=== PATIENT | male | born 1945 | race African-American/Black ===

== ENCOUNTER 2017-10-16 03:28 | Inpatient (IN) ==
[2017-10-16] MEDS ORDERED: SODIUM CHLORIDE 0.9% 500 ML IV STA (03:44)
[2017-10-16] MEDS ORDERED: ALBUTEROL/IPRATROPIUM 3 ML NEB RESP TX STA (03:44)
[2017-10-16] MEDS ORDERED: methylPREDNISolone SOD SUC 125 MG/2 ML VIAL IV STA (03:44)
[2017-10-16 03:59] LABS: Basophils # 0.1 10*3/uL (0.0-0.2); Basophils % 0.5 % (0.0-0.8); Eosinophils % 0.1 % (0.00-10.9); Hematocrit 43.2 VOL% (42.0-52.0); Hemoglobin 14.3 GM/DL (14.0-18.0); Immature Granulocytes % 1.6 %; Lymphocytes % 7.6 % (21.2-54.2); Mean Corpuscular HGB Conc 33.1 GM/DL (32-36); Mean Corpuscular Hemoglobin 29 PG (27-34); Mean Platelet Volume 9.3 FL (9.6-12.0); Monocytes # 0.6 10*3/uL (0.11-0.8); Monocytes % 4.7 % (1.7-12.7); Neutrophils # 10.7 10*3/uL (1.4-7.4); Neutrophils % 85.5 % (38.7-73.9); Platelet Count 379 T/CUMM (130-400); Red Blood Count 4.91 MC/CUMM (3.8-5.5); Red Cell Distribution Width 13.2 % (9.3-17.3); White Blood Count 12.5 T/CUMM (4-12)
[2017-10-16 04:10] LABS: INR 1.1; PT Patient Result 11.6 SECS
[2017-10-16 04:28] LABS: Bilirubin,Total 0.5 MG/DL (0.2-1.0); Calcium 9.1 MG/DL (8.5-10.1); Osmolality,Calculated 305.3 MOS/KG (273-304); Potassium 3.6 MMOL/L (3.5-5.1); Thyroid Stimulating Hormone 1.72 uIU/ml (0.358-3.74); Total Protein 7.5 G/DL (6.4-8.3); Troponin I Only 0.023 NG/ML (0.00-0.045)
[2017-10-16] MEDS ORDERED: methylPREDNISolone SOD SUC 125 MG/2 ML VIAL ONE (04:29)
[2017-10-16 04:31] LABS: ABG Base Excess 0.2 MMOL/L (-2.5-2.5); ABG HCO3 23.1 MMOL/L (20-26); ABG Oxygen Saturation 82.4 % (95-100); ABG PCO2 32.7 MM HG (35-48); ABG PH 7.466 (7.35-7.45); ABG PO2 50.1 MM HG (80-95); ABG TCO2 24.1 MMOL/L (23-27)
[2017-10-16 04:32] LABS: Lactic Acid 1.2 MMOL/L (0.4-2.0)
[2017-10-16] MEDS ORDERED: metroNIDAZOLE INJ 500 MG in PREMIX 1 EACH IV STA (05:31)
[2017-10-16] MEDS ORDERED: PIPERACILLIN/TAZOBACTAM 3,375 MG in SODIUM CHLORIDE 0.9% 100 ML IV STA (05:31)
[2017-10-16] MEDS ORDERED: ALBUTEROL 2.5 MG/3 ML NEB RESP TX PRN (05:59)
[2017-10-16] MEDS ORDERED: ONDANSETRON 4 MG/2 ML VIAL IV PRN (05:59)
[2017-10-16] MEDS ORDERED: PROMETHAZINE 25 MG/1 ML VIAL IM PRN (05:59)
[2017-10-16] MEDS ORDERED: SODIUM CHLORIDE 0.9% 100 ML IV ONE (06:03)
[2017-10-16] MEDS ORDERED: metroNIDAZOLE 500 MG/100 ML PREMIX IV ONE (06:03)
[2017-10-16] MEDS ORDERED: PIPERACILLIN/TAZOBACTAM 3,375 MG VIAL IV ONE (06:03)
[2017-10-16 06:42] LABS: Apearance,Urine Slightly Hazy (Clear); Bilirubin,Urine Negative (Negative); Blood, Urine Negative (Negative); Glucose,Urine (UA) Negative (Negative); Hyaline Casts,Urine 11 /LPF (0-3); Ketones,Urine Negative (Negative); Mucus,Urine Moderate /LPF (Occasional); Nitrite,Urine Negative (Negative); Protein,Urine 30 MG/DL; Urine Color Yellow (Yellow); Urine Specific Gravity 1.042 (1.001-1.035); Urine Urobilinogen < 2.0 EU/DL (0.2-1.0); WBC,Urine 2 /HPF (0-6)
[2017-10-16 06:48] LABS: RBC,Urine 0 /HPF (0-4)
[2017-10-16] MEDS: ALBUTEROL/IPRATROPIUM 3 ML NEB RESP TX SCH ×3 (07:39→18:57)
[2017-10-16] MEDS ORDERED: fentaNYL 100 MCG/2 ML VIAL ONE (09:32)
[2017-10-16] MEDS ORDERED: MIDAZOLAM 2 MG/2 ML VIAL ONE (09:32)
[2017-10-16] MEDS ORDERED: PHENYLEPHRINE 10 MG/1 ML VIAL IV ONE (09:32)
[2017-10-16] MEDS ORDERED: ETOMIDATE 40 MG/20 ML VIAL IV ONE (09:32)
[2017-10-16] MEDS ORDERED: SEVOFLURANE 1 UNIT/15 MINUTE INH ONE (09:32)
[2017-10-16] MEDS ORDERED: SUCCINYLCHOLINE 200 MG/10 ML VIAL ONE (09:33)
[2017-10-16] MEDS ORDERED: ROCURONIUM 100 MG/10 ML VIAL IV ONE (09:33)
[2017-10-16] MEDS ORDERED: LACTATED RINGERS 1,000 ML IV ONE (09:33)
[2017-10-16] MEDS ORDERED: SODIUM CHLORIDE 0.9% 2,000 ML IV ONE (09:33)
[2017-10-16 09:52] LABS: ABG Base Excess -6.2 MMOL/L (-2.5-2.5); ABG HCO3 19.3 MMOL/L (20-26); ABG Oxygen Saturation 96.8 % (95-100); ABG PCO2 55.5 MM HG (35-48); ABG PH 7.216 (7.35-7.45); ABG TCO2 20.3 MMOL/L (23-27)
[2017-10-16 09:59] LABS: Hematocrit 41.1 VOL% (42.0-52.0)
[2017-10-16 10:21] LABS: ABG Base Excess -5.5 MMOL/L (-2.5-2.5); ABG HCO3 19.9 MMOL/L (20-26); ABG Oxygen Saturation 96.8 % (95-100); ABG PCO2 55.9 MM HG (35-48); ABG PH 7.225 (7.35-7.45); ABG TCO2 20.7 MMOL/L (23-27)
[2017-10-16] MEDS: PROPOFOL 1,000 MG/100 ML BOTTLE IV SCH (10:38)
[2017-10-16] MEDS: SODIUM CHLORIDE 0.9% 1,000 ML IV SCH ×2 (11:20→22:23)
[2017-10-16] MEDS: PHENYLEPHRINE DRIP 40 MG/250 ML PREMIX IV PRN ×3 (11:21→23:19)
[2017-10-16] MEDS: metroNIDAZOLE INJ 500 MG in PREMIX 1 EACH IV SCH ×2 (11:42→18:12)
[2017-10-16] MEDS: methylPREDNISolone SOD SUC 40 MG/1 ML VIAL IV SCH ×2 (11:42→22:18)
[2017-10-16 11:47] LABS: ABG Base Excess -4.6 MMOL/L (-2.5-2.5); ABG HCO3 20.7 MMOL/L (20-26); ABG Oxygen Saturation 99.3 % (95-100); ABG PCO2 44.4 MM HG (35-48); ABG PH 7.301 (7.35-7.45); ABG TCO2 19.4 MMOL/L (23-27)
[2017-10-16] MEDS: PIPERACILLIN/TAZOBACTAM 3,375 MG in SODIUM CHLORIDE 0.9% 100 ML IV SCH ×2 (15:00→22:17)
[2017-10-16 17:14] LABS: Hematocrit 37.8 VOL% (42.0-52.0); Hemoglobin 12.5 GM/DL (14.0-18.0)
[2017-10-17] MEDS: SODIUM CHLORIDE 0.9% 1,000 ML IV SCH ×2 (00:34→10:33)
[2017-10-17] MEDS: metroNIDAZOLE INJ 500 MG in PREMIX 1 EACH IV SCH ×5 (00:36→23:39)
[2017-10-17] MEDS: ALBUTEROL/IPRATROPIUM 3 ML NEB RESP TX SCH ×4 (00:46→18:40)
[2017-10-17 02:07] LABS: Basophils # 0.2 10*3/uL (0.0-0.2); Basophils % 0.8 % (0.0-0.8); Hematocrit 37.6 VOL% (42.0-52.0); Hemoglobin 11.9 GM/DL (14.0-18.0); Immature Granulocytes % 2.7 %; Immature Granulocytes Absolute 0.52 #; Lymphocytes # 0.7 10*3/uL (1.4-4.0); Lymphocytes % 3.9 % (21.2-54.2); Mean Corpuscular HGB Conc 31.6 GM/DL (32-36); Mean Corpuscular Hemoglobin 29 PG (27-34); Mean Corpuscular Volume 90.2 FL (87-102); Mean Platelet Volume 9.4 FL (9.6-12.0); Monocytes # 0.8 10*3/uL (0.11-0.8); Monocytes % 4.2 % (1.7-12.7); Neutrophils # 16.9 10*3/uL (1.4-7.4); Neutrophils % 88.4 % (38.7-73.9); Platelet Count 322 T/CUMM (130-400); Red Blood Count 4.17 MC/CUMM (3.8-5.5); Red Cell Distribution Width 13.8 % (9.3-17.3); White Blood Count 19.2 T/CUMM (4-12)
[2017-10-17 02:33] LABS: Albumin 2.1 G/DL (3.4-5.0); Bilirubin,Total 0.5 MG/DL (0.2-1.0); Calcium 7.3 MG/DL (8.5-10.1); Osmolality,Calculated 316.7 MOS/KG (273-304); Total Protein 5.4 G/DL (6.4-8.3)
[2017-10-17 02:43] LABS: Band Neutrophils 42 % (0-10); Lymphocytes 3 % (20-55); Metamyelocytes 1 %; Segmented Neutrophils 52 % (50-85); Total Cells Counted 100
[2017-10-17] MEDS: PROPOFOL 1,000 MG/100 ML BOTTLE IV SCH ×2 (02:59→15:53)
[2017-10-17] MEDS: PIPERACILLIN/TAZOBACTAM 3,375 MG in SODIUM CHLORIDE 0.9% 100 ML IV SCH ×3 (05:26→21:17)
[2017-10-17 07:28] LABS: ABG Base Excess -4.3 MMOL/L (-2.5-2.5); ABG HCO3 20.9 MMOL/L (20-26); ABG Oxygen Saturation 99.7 % (95-100); ABG PCO2 35.5 MM HG (35-48); ABG PH 7.367 (7.35-7.45); ABG TCO2 18.2 MMOL/L (23-27)
[2017-10-17] MEDS ORDERED: ACETAMINOPHEN 325 MG TABLET PO PRN (08:13)
[2017-10-17] MEDS: PHENYLEPHRINE DRIP 40 MG/250 ML PREMIX IV PRN ×2 (09:15→16:31)
[2017-10-17] MEDS: methylPREDNISolone SOD SUC 40 MG/1 ML VIAL IV SCH ×2 (10:29→21:24)
[2017-10-17] MEDS ORDERED: DEXTROSE 5% 1,000 ML IV SCH (12:30)
[2017-10-17] MEDS: LEVOFLOXACIN INJ 250 MG in PREMIX 1 EACH IV SCH (12:53)
[2017-10-17] MEDS: [UNRECOGNIZED DRUG - OTHER] IV SCH ×3 (12:57→23:13)
[2017-10-17] MEDS: MULTIVITAMIN IV SCH ×3 (12:57→23:13)
[2017-10-17] MEDS: THIAMINE IV SCH ×3 (12:57→23:13)
[2017-10-18] MEDS: ALBUTEROL/IPRATROPIUM 3 ML NEB RESP TX SCH ×4 (01:43→19:22)
[2017-10-18] MEDS: PROPOFOL 1,000 MG/100 ML BOTTLE IV SCH ×3 (04:09→21:54)
[2017-10-18 05:04] LABS: ABG Base Excess -3.2 MMOL/L (-2.5-2.5); ABG HCO3 21.8 MMOL/L (20-26); ABG Oxygen Saturation 99.8 % (95-100); ABG PH 7.406 (7.35-7.45); ABG TCO2 18.7 MMOL/L (23-27)
[2017-10-18] MEDS: PIPERACILLIN/TAZOBACTAM 3,375 MG in SODIUM CHLORIDE 0.9% 100 ML IV SCH ×3 (05:11→21:55)
[2017-10-18] MEDS: metroNIDAZOLE INJ 500 MG in PREMIX 1 EACH IV SCH ×4 (05:11→23:39)
[2017-10-18 05:12] LABS: Basophils # 0.1 10*3/uL (0.0-0.2); Basophils % 0.3 % (0.0-0.8); Hematocrit 32.9 VOL% (42.0-52.0); Hemoglobin 10.5 GM/DL (14.0-18.0); Immature Granulocytes % 1.3 %; Immature Granulocytes Absolute 0.24 #; Lymphocytes # 0.6 10*3/uL (1.4-4.0); Mean Corpuscular HGB Conc 31.9 GM/DL (32-36); Mean Corpuscular Hemoglobin 29 PG (27-34); Mean Corpuscular Volume 91.4 FL (87-102); Mean Platelet Volume 9.8 FL (9.6-12.0); Monocytes # 0.7 10*3/uL (0.11-0.8); Monocytes % 3.5 % (1.7-12.7); Neutrophils # 16.9 10*3/uL (1.4-7.4); Neutrophils % 91.9 % (38.7-73.9); Platelet Count 262 T/CUMM (130-400); Red Cell Distribution Width 13.6 % (9.3-17.3); White Blood Count 18.4 T/CUMM (4-12)
[2017-10-18 05:27] LABS: INR 1.1; Partial Thromboplastin Time 30.6 SECS (0-40)
[2017-10-18 05:51] LABS: Band Neutrophils 2 % (0-10); Lymphocytes 3 % (20-55); Platelet Estimate Adequate; Segmented Neutrophils 91 % (50-85); Total Cells Counted 100
[2017-10-18 05:52] LABS: Giant Platelets Few; Hypochromasia 1+; Ovalocytes Slight
[2017-10-18] MEDS: THIAMINE IV SCH ×2 (09:50→18:25)
[2017-10-18] MEDS: MULTIVITAMIN IV SCH ×2 (09:50→18:25)
[2017-10-18] MEDS: [UNRECOGNIZED DRUG - OTHER] IV SCH ×2 (09:50→18:25)
[2017-10-18] MEDS: methylPREDNISolone SOD SUC 40 MG/1 ML VIAL IV SCH ×2 (10:28→21:55)
[2017-10-18] MEDS: LEVOFLOXACIN INJ 250 MG in PREMIX 1 EACH IV SCH (12:35)
[2017-10-18] MEDS ORDERED: DEXTROSE 50% 25 GM/50 ML VIAL IV PRN (16:00)
[2017-10-18] MEDS ORDERED: GLUCAGON 1 MG VIAL IM PRN (16:00)
[2017-10-18] MEDS ORDERED: DEXT IV SCH ×2 (17:00)
[2017-10-18] MEDS ORDERED: AMINO ACIDS IV SCH ×2 (17:00)
[2017-10-18] MEDS ORDERED: LYTE IV SCH ×2 (17:00)
[2017-10-18] MEDS ORDERED: TRACE ELEMENTS IV SCH ×2 (17:00)
[2017-10-18] MEDS: INSULIN REGULAR 100 UNIT/ML SUBCUT SCH ×2 (18:37→23:39)
[2017-10-18] MEDS: MORPHINE 4 MG/1 ML VIAL IV PRN (20:22)
[2017-10-19] MEDS: ALBUTEROL/IPRATROPIUM 3 ML NEB RESP TX SCH ×4 (01:35→19:33)
[2017-10-19] MEDS: MORPHINE 4 MG/1 ML VIAL IV PRN ×3 (01:54→23:59)
[2017-10-19 03:47] LABS: ABG Base Excess -2.7 MMOL/L (-2.5-2.5); ABG HCO3 22.1 MMOL/L (20-26); ABG Oxygen Saturation 99.7 % (95-100); ABG PCO2 44.1 MM HG (35-48); ABG PH 7.329 (7.35-7.45); ABG TCO2 21.3 MMOL/L (23-27)
[2017-10-19 03:53] LABS: Basophils % 0.2 % (0.0-0.8); Hematocrit 31.8 VOL% (42.0-52.0); Immature Granulocytes Absolute 0.18 #; Lymphocytes # 0.5 10*3/uL (1.4-4.0); Lymphocytes % 2.4 % (21.2-54.2); Mean Corpuscular HGB Conc 31.4 GM/DL (32-36); Mean Corpuscular Hemoglobin 29 PG (27-34); Mean Corpuscular Volume 91.9 FL (87-102); Mean Platelet Volume 9.9 FL (9.6-12.0); Monocytes # 0.5 10*3/uL (0.11-0.8); Monocytes % 2.7 % (1.7-12.7); NRBC # 0.02 10*3/uL; Neutrophils # 17.6 10*3/uL (1.4-7.4); Neutrophils % 93.7 % (38.7-73.9); Platelet Count 241 T/CUMM (130-400); Red Blood Count 3.46 MC/CUMM (3.8-5.5); Red Cell Distribution Width 13.6 % (9.3-17.3); White Blood Count 18.8 T/CUMM (4-12)
[2017-10-19 04:05] LABS: Calcium 7.3 MG/DL (8.5-10.1); Osmolality,Calculated 310.3 MOS/KG (273-304); Potassium 4.1 MMOL/L (3.5-5.1)
[2017-10-19 04:22] LABS: Band Neutrophils 1 % (0-10); Lymphocytes 3 % (20-55); Segmented Neutrophils 94 % (50-85); Total Cells Counted 100
[2017-10-19 04:24] LABS: Giant Platelets Few; Hypochromasia Slight; Ovalocytes 1+; Platelet Estimate Normal
[2017-10-19 04:25] LABS: Burr Cells Few
[2017-10-19 04:29] LABS: Prealbumin 8.9 MG/DL (20-40)
[2017-10-19] MEDS: INSULIN REGULAR 100 UNIT/ML SUBCUT SCH ×3 (05:20→18:00)
[2017-10-19] MEDS: PIPERACILLIN/TAZOBACTAM 3,375 MG in SODIUM CHLORIDE 0.9% 100 ML IV SCH ×3 (05:21→21:06)
[2017-10-19] MEDS: metroNIDAZOLE INJ 500 MG in PREMIX 1 EACH IV SCH ×4 (05:21→23:59)
[2017-10-19] MEDS: PROPOFOL 1,000 MG/100 ML BOTTLE IV SCH ×2 (05:22→15:16)
[2017-10-19] MEDS: methylPREDNISolone SOD SUC 40 MG/1 ML VIAL IV SCH ×2 (09:56→21:06)
[2017-10-19] MEDS ORDERED: DEXTROSE IV SCH (10:00)
[2017-10-19] MEDS ORDERED: MULTIVITAMIN IV SCH (10:00)
[2017-10-19] MEDS ORDERED: THIAMINE IV SCH (10:00)
[2017-10-19] MEDS: LEVOFLOXACIN INJ 250 MG in PREMIX 1 EACH IV SCH (12:21)
[2017-10-19] MEDS: LABETALOL 20 MG/4 ML SYRINGE IV PRN (13:52)
[2017-10-19] MEDS: TRACE ELEMENTS (5) 1 ML, MULTIVITAMIN INJ 10 ML, INSULIN REGULAR 30 UNIT in AMINO ACIDS... IV SCH (15:18)
[2017-10-20] MEDS: INSULIN REGULAR 100 UNIT/ML SUBCUT SCH ×5 (00:53→23:26)
[2017-10-20] MEDS: ALBUTEROL/IPRATROPIUM 3 ML NEB RESP TX SCH ×4 (00:55→19:25)
[2017-10-20] MEDS: PROPOFOL 1,000 MG/100 ML BOTTLE IV SCH ×4 (01:07→19:50)
[2017-10-20 02:08] LABS: ABG Base Excess 0.9 MMOL/L (-2.5-2.5); ABG HCO3 25.2 MMOL/L (20-26); ABG Oxygen Saturation 99.2 % (95-100); ABG PCO2 42.8 MM HG (35-48); ABG PH 7.392 (7.35-7.45); ABG TCO2 23.6 MMOL/L (23-27)
[2017-10-20 02:16] LABS: Basophils # 0.1 10*3/uL (0.0-0.2); Basophils % 0.3 % (0.0-0.8); Hematocrit 30.8 VOL% (42.0-52.0); Hemoglobin 10.1 GM/DL (14.0-18.0); Immature Granulocytes % 0.9 %; Immature Granulocytes Absolute 0.16 #; Lymphocytes # 0.4 10*3/uL (1.4-4.0); Lymphocytes % 2.3 % (21.2-54.2); Mean Corpuscular HGB Conc 32.8 GM/DL (32-36); Mean Corpuscular Hemoglobin 29 PG (27-34); Mean Corpuscular Volume 88.8 FL (87-102); Mean Platelet Volume 10.4 FL (9.6-12.0); Monocytes # 0.6 10*3/uL (0.11-0.8); Monocytes % 3.4 % (1.7-12.7); Neutrophils # 16.1 10*3/uL (1.4-7.4); Neutrophils % 93.1 % (38.7-73.9); Platelet Count 256 T/CUMM (130-400); Red Blood Count 3.47 MC/CUMM (3.8-5.5); Red Cell Distribution Width 13.4 % (9.3-17.3); White Blood Count 17.3 T/CUMM (4-12)
[2017-10-20 02:30] LABS: Calcium 7.7 MG/DL (8.5-10.1); Osmolality,Calculated 309.3 MOS/KG (273-304); Potassium 4.4 MMOL/L (3.5-5.1)
[2017-10-20 02:34] LABS: INR 1.1; PT Patient Result 11.3 SECS; Partial Thromboplastin Time 26.6 SECS (0-40)
[2017-10-20 03:03] LABS: Band Neutrophils 2 % (0-10); Lymphocytes 3 % (20-55); Platelet Estimate Normal; Segmented Neutrophils 95 % (50-85); Total Cells Counted 100
[2017-10-20] MEDS: PIPERACILLIN/TAZOBACTAM 3,375 MG in SODIUM CHLORIDE 0.9% 100 ML IV SCH ×3 (05:27→23:06)
[2017-10-20] MEDS: metroNIDAZOLE INJ 500 MG in PREMIX 1 EACH IV SCH ×4 (05:27→23:26)
[2017-10-20] MEDS: methylPREDNISolone SOD SUC 40 MG/1 ML VIAL IV SCH ×2 (10:24→23:06)
[2017-10-20] MEDS: LEVOFLOXACIN INJ 250 MG in PREMIX 1 EACH IV SCH (12:34)
[2017-10-20] MEDS: MORPHINE 4 MG/1 ML VIAL IV PRN ×2 (13:10→20:43)
[2017-10-20] MEDS ORDERED: TRACE ELEMENTS (5) 1 ML, MULTIVITAMIN INJ 10 ML, INSULIN REGULAR 60 UNIT in AMINO ACIDS... IV SCH (14:30)
[2017-10-20] MEDS: TRACE ELEMENTS (5) 1 ML, MULTIVITAMIN INJ 10 ML, INSULIN REGULAR 60 UNIT in AMINO ACIDS... IV SCH (15:30)
[2017-10-20] MEDS: TRACE ELEMENTS (5) 1 ML, MULTIVITAMIN INJ 10 ML, INSULIN REGULAR 30 UNIT in AMINO ACIDS... IV SCH (16:18)
[2017-10-20] MEDS ORDERED: DEXTROSE 10% 1,000 ML IV PRN (17:00)
[2017-10-20] MEDS: LABETALOL 20 MG/4 ML SYRINGE IV PRN (20:15)
[2017-10-21] MEDS: ALBUTEROL/IPRATROPIUM 3 ML NEB RESP TX SCH ×4 (01:14→19:32)
[2017-10-21] MEDS: PROPOFOL 1,000 MG/100 ML BOTTLE IV SCH ×4 (01:50→20:30)
[2017-10-21 04:37] LABS: ABG Base Excess 3.6 MMOL/L (-2.5-2.5); ABG HCO3 27.7 MMOL/L (20-26); ABG Oxygen Saturation 99.3 % (95-100); ABG PCO2 40.5 MM HG (35-48); ABG PH 7.447 (7.35-7.45); ABG TCO2 24.7 MMOL/L (23-27)
[2017-10-21] MEDS: PIPERACILLIN/TAZOBACTAM 3,375 MG in SODIUM CHLORIDE 0.9% 100 ML IV SCH ×3 (05:21→21:07)
[2017-10-21] MEDS: INSULIN REGULAR 100 UNIT/ML SUBCUT SCH ×3 (05:22→18:08)
[2017-10-21] MEDS: metroNIDAZOLE INJ 500 MG in PREMIX 1 EACH IV SCH ×3 (05:22→17:49)
[2017-10-21 05:35] LABS: Calcium 8.1 MG/DL (8.5-10.1); Osmolality,Calculated 300.6 MOS/KG (273-304); Potassium 4.4 MMOL/L (3.5-5.1)
[2017-10-21] MEDS ORDERED: HEPARIN/NACL 0.9% 2 UNITS/ML 500 ML IV ONE (08:49)
[2017-10-21] MEDS: HEPARIN/NACL 0.9% 2 UNITS/ML 500 ML IV SCH (09:05)
[2017-10-21] MEDS: methylPREDNISolone SOD SUC 40 MG/1 ML VIAL IV SCH ×2 (10:18→21:08)
[2017-10-21] MEDS: LEVOFLOXACIN INJ 250 MG in PREMIX 1 EACH IV SCH (12:04)
[2017-10-21] MEDS: TRACE ELEMENTS (5) 1 ML, MULTIVITAMIN INJ 10 ML, INSULIN REGULAR 60 UNIT in AMINO ACIDS... IV SCH (15:00)
[2017-10-21] MEDS: MORPHINE 4 MG/1 ML VIAL IV PRN (20:10)
[2017-10-22] MEDS: metroNIDAZOLE INJ 500 MG in PREMIX 1 EACH IV SCH ×5 (01:20→23:35)
[2017-10-22] MEDS: INSULIN REGULAR 100 UNIT/ML SUBCUT SCH ×5 (01:20→23:36)
[2017-10-22] MEDS: ALBUTEROL/IPRATROPIUM 3 ML NEB RESP TX SCH ×4 (01:26→19:24)
[2017-10-22] MEDS: MORPHINE 4 MG/1 ML VIAL IV PRN (02:39)
[2017-10-22 04:28] LABS: ABG Base Excess 2.6 MMOL/L (-2.5-2.5); ABG HCO3 26.7 MMOL/L (20-26); ABG Oxygen Saturation 99.3 % (95-100); ABG PCO2 39.6 MM HG (35-48); ABG PH 7.439 (7.35-7.45)
[2017-10-22 05:03] LABS: Calcium 7.5 MG/DL (8.5-10.1); Osmolality,Calculated 300.8 MOS/KG (273-304); Potassium 4.8 MMOL/L (3.5-5.1)
[2017-10-22] MEDS: PIPERACILLIN/TAZOBACTAM 3,375 MG in SODIUM CHLORIDE 0.9% 100 ML IV SCH ×3 (05:49→21:32)
[2017-10-22] MEDS ORDERED: cefTRIAXone 1,000 MG VIAL IM SCH (08:00)
[2017-10-22] MEDS ORDERED: cefTRIAXone 1,000 MG VIAL IV SCH (09:02)
[2017-10-22] MEDS: HEPARIN/NACL 0.9% 2 UNITS/ML 500 ML IV SCH (09:06)
[2017-10-22] MEDS: cefTRIAXone 1,000 MG in SYRINGE 1 EACH IV SCH (09:10)
[2017-10-22] MEDS: methylPREDNISolone SOD SUC 40 MG/1 ML VIAL IV SCH ×2 (09:39→21:33)
[2017-10-22] MEDS: LEVOFLOXACIN INJ 250 MG in PREMIX 1 EACH IV SCH (11:43)
[2017-10-22] MEDS: PROPOFOL 1,000 MG/100 ML BOTTLE IV SCH (14:36)
[2017-10-23] MEDS: ALBUTEROL/IPRATROPIUM 3 ML NEB RESP TX SCH ×4 (01:47→19:16)
[2017-10-23] MEDS: PROPOFOL 1,000 MG/100 ML BOTTLE IV SCH ×3 (04:30→20:28)
[2017-10-23 05:11] LABS: ABG Base Excess 2.4 MMOL/L (-2.5-2.5); ABG HCO3 26.6 MMOL/L (20-26); ABG Oxygen Saturation 99.2 % (95-100); ABG PH 7.434 (7.35-7.45); ABG TCO2 23.6 MMOL/L (23-27)
[2017-10-23] MEDS: PIPERACILLIN/TAZOBACTAM 3,375 MG in SODIUM CHLORIDE 0.9% 100 ML IV SCH ×3 (05:24→22:22)
[2017-10-23] MEDS: INSULIN REGULAR 100 UNIT/ML SUBCUT SCH ×4 (05:25→23:24)
[2017-10-23] MEDS: metroNIDAZOLE INJ 500 MG in PREMIX 1 EACH IV SCH ×4 (05:25→23:23)
[2017-10-23 05:43] LABS: Calcium 8.2 MG/DL (8.5-10.1); Potassium 4.8 MMOL/L (3.5-5.1)
[2017-10-23 05:47] LABS: Prealbumin 24.5 MG/DL (20-40)
[2017-10-23 07:33] LABS: Basophils # 0.1 10*3/uL (0.0-0.2); Basophils % 0.5 % (0.0-0.8); Eosinophils % 0.1 % (0.00-10.9); Hemoglobin 11.4 GM/DL (14.0-18.0); Immature Granulocytes % 5.5 %; Lymphocytes # 1.2 10*3/uL (1.4-4.0); Lymphocytes % 9.3 % (21.2-54.2); Mean Corpuscular HGB Conc 33.5 GM/DL (32-36); Mean Corpuscular Hemoglobin 29 PG (27-34); Mean Corpuscular Volume 86.7 FL (87-102); Mean Platelet Volume 10.1 FL (9.6-12.0); Monocytes # 1.2 10*3/uL (0.11-0.8); Neutrophils # 9.6 10*3/uL (1.4-7.4); Neutrophils % 75.6 % (38.7-73.9); Platelet Count 331 T/CUMM (130-400); Red Blood Count 3.92 MC/CUMM (3.8-5.5); Red Cell Distribution Width 13.2 % (9.3-17.3); White Blood Count 12.7 T/CUMM (4-12)
[2017-10-23 07:37] LABS: INR 1.2; PT Patient Result 12.4 SECS; Partial Thromboplastin Time 24.4 SECS (0-40)
[2017-10-23 08:23] LABS: Hypochromasia 1+
[2017-10-23] MEDS: HEPARIN/NACL 0.9% 2 UNITS/ML 500 ML IV SCH (08:49)
[2017-10-23] MEDS: cefTRIAXone 1,000 MG in SYRINGE 1 EACH IV SCH (09:21)
[2017-10-23] MEDS: methylPREDNISolone SOD SUC 40 MG/1 ML VIAL IV SCH ×2 (09:24→22:23)
[2017-10-23] MEDS: LEVOFLOXACIN INJ 250 MG in PREMIX 1 EACH IV SCH (12:31)
[2017-10-23] MEDS: MORPHINE 4 MG/1 ML VIAL IV PRN (21:00)
[2017-10-24] MEDS: ALBUTEROL/IPRATROPIUM 3 ML NEB RESP TX SCH ×4 (00:11→19:11)
[2017-10-24 04:19] LABS: ABG Base Excess 3.7 MMOL/L (-2.5-2.5); ABG HCO3 27.7 MMOL/L (20-26); ABG Oxygen Saturation 98.9 % (95-100); ABG PCO2 36.1 MM HG (35-48); ABG PH 7.482 (7.35-7.45); ABG TCO2 23.6 MMOL/L (23-27)
[2017-10-24 04:24] LABS: Basophils # 0.1 10*3/uL (0.0-0.2); Basophils % 0.7 % (0.0-0.8); Eosinophils % 0.1 % (0.00-10.9); Hematocrit 38.1 VOL% (42.0-52.0); Hemoglobin 12.4 GM/DL (14.0-18.0); Immature Granulocytes % 3.7 %; Immature Granulocytes Absolute 0.57 #; Lymphocytes # 0.7 10*3/uL (1.4-4.0); Lymphocytes % 4.6 % (21.2-54.2); Mean Corpuscular HGB Conc 32.5 GM/DL (32-36); Mean Corpuscular Hemoglobin 29 PG (27-34); Mean Corpuscular Volume 88.6 FL (87-102); Mean Platelet Volume 9.8 FL (9.6-12.0); Monocytes # 1.1 10*3/uL (0.11-0.8); Monocytes % 6.9 % (1.7-12.7); Neutrophils # 12.8 10*3/uL (1.4-7.4); Platelet Count 362 T/CUMM (130-400); Red Cell Distribution Width 13.2 % (9.3-17.3); White Blood Count 15.3 T/CUMM (4-12)
[2017-10-24 04:44] LABS: Calcium 8.3 MG/DL (8.5-10.1); Osmolality,Calculated 296.3 MOS/KG (273-304); Potassium 4.5 MMOL/L (3.5-5.1)
[2017-10-24 04:47] LABS: Band Neutrophils 2 % (0-10); Giant Platelets Few; Hypochromasia 1+; Lymphocytes 3 % (20-55); Platelet Estimate Adequate; Segmented Neutrophils 89 % (50-85); Total Cells Counted 100
[2017-10-24] MEDS: metroNIDAZOLE INJ 500 MG in PREMIX 1 EACH IV SCH ×4 (06:06→23:45)
[2017-10-24] MEDS: PIPERACILLIN/TAZOBACTAM 3,375 MG in SODIUM CHLORIDE 0.9% 100 ML IV SCH ×3 (06:06→21:42)
[2017-10-24] MEDS: INSULIN REGULAR 100 UNIT/ML SUBCUT SCH ×4 (06:07→23:45)
[2017-10-24] MEDS: methylPREDNISolone SOD SUC 40 MG/1 ML VIAL IV SCH ×2 (09:33→21:42)
[2017-10-24] MEDS: cefTRIAXone 1,000 MG in SYRINGE 1 EACH IV SCH (09:40)
[2017-10-24] MEDS: HEPARIN/NACL 0.9% 2 UNITS/ML 500 ML IV SCH (10:42)
[2017-10-24] MEDS: PROPOFOL 1,000 MG/100 ML BOTTLE IV SCH ×2 (10:42→18:14)
[2017-10-24] MEDS: LEVOFLOXACIN INJ 250 MG in PREMIX 1 EACH IV SCH (12:55)
[2017-10-24] MEDS: FAT EMULSION 20% 250 ML IV SCH (14:55)
[2017-10-24] MEDS ORDERED: TRACE ELEMENTS (5) 1 ML, MULTIVITAMIN INJ 10 ML in AMINO ACIDS/DEXT/LYTE 4.25-15% 2,000 ML IV SCH (17:00)
[2017-10-25] MEDS: ALBUTEROL/IPRATROPIUM 3 ML NEB RESP TX SCH ×4 (01:52→19:41)
[2017-10-25 05:02] LABS: ABG Base Excess 4.2 MMOL/L (-2.5-2.5); ABG HCO3 28.2 MMOL/L (20-26); ABG Oxygen Saturation 99.2 % (95-100); ABG PCO2 40.3 MM HG (35-48); ABG PH 7.456 (7.35-7.45); ABG TCO2 25.3 MMOL/L (23-27)
[2017-10-25] MEDS: metroNIDAZOLE INJ 500 MG in PREMIX 1 EACH IV SCH ×3 (06:17→17:38)
[2017-10-25] MEDS: PIPERACILLIN/TAZOBACTAM 3,375 MG in SODIUM CHLORIDE 0.9% 100 ML IV SCH ×3 (06:18→21:35)
[2017-10-25] MEDS: INSULIN REGULAR 100 UNIT/ML SUBCUT SCH ×3 (06:18→18:33)
[2017-10-25] MEDS: HEPARIN/NACL 0.9% 2 UNITS/ML 500 ML IV SCH (08:11)
[2017-10-25] MEDS: cefTRIAXone 1,000 MG in SYRINGE 1 EACH IV SCH (09:12)
[2017-10-25] MEDS: methylPREDNISolone SOD SUC 40 MG/1 ML VIAL IV SCH ×2 (09:12→21:33)
[2017-10-25] MEDS: LEVOFLOXACIN INJ 250 MG in PREMIX 1 EACH IV SCH (11:58)
[2017-10-25] MEDS: FAT EMULSION 20% 250 ML IV SCH (14:47)
[2017-10-25] MEDS: TRACE ELEMENTS (5) 1 ML, MULTIVITAMIN INJ 10 ML in AMINO ACIDS/DEXT/LYTE 4.25-15% 2,000 ML IV SCH (17:38)
[2017-10-25] MEDS: PROPOFOL 1,000 MG/100 ML BOTTLE IV SCH (19:48)
[2017-10-26] MEDS: ALBUTEROL/IPRATROPIUM 3 ML NEB RESP TX SCH ×4 (00:52→19:27)
[2017-10-26] MEDS: metroNIDAZOLE INJ 500 MG in PREMIX 1 EACH IV SCH ×4 (01:02→17:44)
[2017-10-26] MEDS: INSULIN REGULAR 100 UNIT/ML SUBCUT SCH ×4 (01:04→17:44)
[2017-10-26 05:31] LABS: ABG HCO3 27.2 MMOL/L (20-26); ABG Oxygen Saturation 99.4 % (95-100); ABG PCO2 37.9 MM HG (35-48); ABG PH 7.459 (7.35-7.45); ABG TCO2 24.4 MMOL/L (23-27)
[2017-10-26 05:50] LABS: INR 1.2; PT Patient Result 12.4 SECS; Partial Thromboplastin Time 24.4 SECS (0-40)
[2017-10-26 05:54] LABS: Basophils % 0.2 % (0.0-0.8); Eosinophils % 0.1 % (0.00-10.9); Hematocrit 31.4 VOL% (42.0-52.0); Immature Granulocytes % 4.1 %; Immature Granulocytes Absolute 0.68 #; Lymphocytes # 0.5 10*3/uL (1.4-4.0); Mean Corpuscular HGB Conc 32.2 GM/DL (32-36); Mean Corpuscular Hemoglobin 29 PG (27-34); Mean Corpuscular Volume 89.7 FL (87-102); Mean Platelet Volume 10.2 FL (9.6-12.0); Monocytes % 5.8 % (1.7-12.7); Neutrophils # 14.4 10*3/uL (1.4-7.4); Neutrophils % 86.8 % (38.7-73.9); Platelet Count 327 T/CUMM (130-400); Red Cell Distribution Width 13.2 % (9.3-17.3); White Blood Count 16.6 T/CUMM (4-12)
[2017-10-26 05:55] LABS: Hemoglobin 10.1 GM/DL (14.0-18.0)
[2017-10-26 06:05] LABS: Lymphocytes 4 % (20-55); Nucleated Red Blood Cells 1 (0-5); Segmented Neutrophils 89 % (50-85); Total Cells Counted 100
[2017-10-26 06:06] LABS: Calcium 8.2 MG/DL (8.5-10.1); Giant Platelets Few; Hypochromasia 1+; Osmolality,Calculated 295.1 MOS/KG (273-304); Ovalocytes Slight; Platelet Estimate Adequate; Potassium 4.2 MMOL/L (3.5-5.1)
[2017-10-26 06:22] LABS: Prealbumin 24.1 MG/DL (20-40)
[2017-10-26] MEDS: PIPERACILLIN/TAZOBACTAM 3,375 MG in SODIUM CHLORIDE 0.9% 100 ML IV SCH ×3 (07:31→22:29)
[2017-10-26] MEDS: LABETALOL 20 MG/4 ML SYRINGE IV PRN ×2 (08:29→16:12)
[2017-10-26] MEDS: PROPOFOL 1,000 MG/100 ML BOTTLE IV SCH ×2 (08:30→19:30)
[2017-10-26] MEDS: cefTRIAXone 1,000 MG in SYRINGE 1 EACH IV SCH (09:42)
[2017-10-26] MEDS: HEPARIN/NACL 0.9% 2 UNITS/ML 500 ML IV SCH (09:43)
[2017-10-26] MEDS: methylPREDNISolone SOD SUC 40 MG/1 ML VIAL IV SCH ×2 (09:43→22:30)
[2017-10-26] MEDS: LEVOFLOXACIN INJ 250 MG in PREMIX 1 EACH IV SCH (12:49)
[2017-10-26] MEDS ORDERED: fentaNYL 100 MCG/2 ML VIAL ONE (15:35)
[2017-10-26] MEDS ORDERED: SEVOFLURANE 1 UNIT/15 MINUTE INH ONE (15:35)
[2017-10-26] MEDS ORDERED: VECURONIUM 10 MG VIAL IV ONE (15:35)
[2017-10-26] MEDS ORDERED: MIDAZOLAM 2 MG/2 ML VIAL ONE (15:35)
[2017-10-26] MEDS ORDERED: methylPREDNISolone SOD SUC 125 MG/2 ML VIAL ONE (15:35)
[2017-10-26] MEDS: TRACE ELEMENTS (5) 1 ML, MULTIVITAMIN INJ 10 ML in AMINO ACIDS/DEXT/LYTE 4.25-15% 2,000 ML IV SCH (16:04)
[2017-10-26] MEDS: FAT EMULSION 20% 250 ML IV SCH (16:04)
[2017-10-26] MEDS: MORPHINE 4 MG/1 ML VIAL IV PRN (16:47)
[2017-10-27] MEDS: INSULIN REGULAR 100 UNIT/ML SUBCUT SCH ×4 (00:03→18:37)
[2017-10-27] MEDS: metroNIDAZOLE INJ 500 MG in PREMIX 1 EACH IV SCH ×4 (00:03→18:39)
[2017-10-27] MEDS: ALBUTEROL/IPRATROPIUM 3 ML NEB RESP TX SCH ×4 (00:50→19:04)
[2017-10-27 03:26] LABS: Basophils # 0.1 10*3/uL (0.0-0.2); Basophils % 0.3 % (0.0-0.8); Hematocrit 34.4 VOL% (42.0-52.0); Hemoglobin 11.5 GM/DL (14.0-18.0); Immature Granulocytes % 2.9 %; Immature Granulocytes Absolute 0.65 #; Lymphocytes # 0.4 10*3/uL (1.4-4.0); Lymphocytes % 1.7 % (21.2-54.2); Mean Corpuscular HGB Conc 33.4 GM/DL (32-36); Mean Corpuscular Hemoglobin 29 PG (27-34); Mean Corpuscular Volume 86.9 FL (87-102); Mean Platelet Volume 10.8 FL (9.6-12.0); Monocytes # 0.8 10*3/uL (0.11-0.8); Monocytes % 3.4 % (1.7-12.7); Neutrophils # 20.6 10*3/uL (1.4-7.4); Neutrophils % 91.7 % (38.7-73.9); Platelet Count 325 T/CUMM (130-400); Red Blood Count 3.96 MC/CUMM (3.8-5.5); White Blood Count 22.4 T/CUMM (4-12)
[2017-10-27 04:13] LABS: Band Neutrophils 10 % (0-10); Lymphocytes 4 % (20-55); Segmented Neutrophils 83 % (50-85); Total Cells Counted 100
[2017-10-27 04:19] LABS: Osmolality,Calculated 286.5 MOS/KG (273-304)
[2017-10-27] MEDS: PROPOFOL 1,000 MG/100 ML BOTTLE IV SCH ×2 (04:30→11:53)
[2017-10-27] MEDS: PIPERACILLIN/TAZOBACTAM 3,375 MG in SODIUM CHLORIDE 0.9% 100 ML IV SCH ×3 (05:43→21:47)
[2017-10-27 07:08] LABS: ABG HCO3 29.8 MMOL/L (20-26); ABG Oxygen Saturation 98.5 % (95-100); ABG PCO2 42.4 MM HG (35-48); ABG PH 7.463 (7.35-7.45); ABG TCO2 27.2 MMOL/L (23-27)
[2017-10-27] MEDS ORDERED: ALBUTEROL/IPRATROPIUM 3 ML NEB RESP TX PRN (08:41)
[2017-10-27 09:59] LABS: ABG Base Excess 6.2 MMOL/L (-2.5-2.5); ABG Oxygen Saturation 96.3 % (95-100); ABG PCO2 43.9 MM HG (35-48); ABG PH 7.456 (7.35-7.45); ABG PO2 81.1 MM HG (80-95); ABG TCO2 26.9 MMOL/L (23-27)
[2017-10-27] MEDS: methylPREDNISolone SOD SUC 40 MG/1 ML VIAL IV SCH ×2 (10:45→21:47)
[2017-10-27] MEDS: cefTRIAXone 1,000 MG in SYRINGE 1 EACH IV SCH (10:45)
[2017-10-27] MEDS: HEPARIN/NACL 0.9% 2 UNITS/ML 500 ML IV SCH (11:51)
[2017-10-27] MEDS: TRACE ELEMENTS (5) 1 ML, MULTIVITAMIN INJ 10 ML in AMINO ACIDS/DEXT/LYTE 4.25-15% 2,000 ML IV SCH (11:56)
[2017-10-27] MEDS: LEVOFLOXACIN INJ 250 MG in PREMIX 1 EACH IV SCH (12:44)
[2017-10-27] MEDS: FAT EMULSION 20% 250 ML IV SCH (15:11)
[2017-10-27] MEDS: LABETALOL 20 MG/4 ML SYRINGE IV PRN (23:12)
[2017-10-28] MEDS: INSULIN REGULAR 100 UNIT/ML SUBCUT SCH ×5 (00:10→23:47)
[2017-10-28] MEDS: metroNIDAZOLE INJ 500 MG in PREMIX 1 EACH IV SCH ×5 (00:11→23:47)
[2017-10-28] MEDS: ALBUTEROL/IPRATROPIUM 3 ML NEB RESP TX SCH ×4 (02:14→19:35)
[2017-10-28] MEDS: LABETALOL 20 MG/4 ML SYRINGE IV PRN (03:15)
[2017-10-28] MEDS: PIPERACILLIN/TAZOBACTAM 3,375 MG in SODIUM CHLORIDE 0.9% 100 ML IV SCH ×3 (06:01→22:22)
[2017-10-28] MEDS: TRACE ELEMENTS (5) 1 ML, MULTIVITAMIN INJ 10 ML in AMINO ACIDS/DEXT/LYTE 4.25-15% 2,000 ML IV SCH (07:28)
[2017-10-28] MEDS: HEPARIN/NACL 0.9% 2 UNITS/ML 500 ML IV SCH (09:41)
[2017-10-28] MEDS: cefTRIAXone 1,000 MG in SYRINGE 1 EACH IV SCH (09:46)
[2017-10-28] MEDS: methylPREDNISolone SOD SUC 40 MG/1 ML VIAL IV SCH ×2 (09:47→22:22)
[2017-10-28] MEDS: LEVOFLOXACIN INJ 250 MG in PREMIX 1 EACH IV SCH (12:09)
[2017-10-28] MEDS: FAT EMULSION 20% 250 ML IV SCH (14:40)
[2017-10-28] MEDS: MORPHINE 4 MG/1 ML VIAL IV PRN (18:28)
[2017-10-28] MEDS: DEXTROSE 10% 1,000 ML IV PRN (20:38)
[2017-10-29] MEDS: ALBUTEROL/IPRATROPIUM 3 ML NEB RESP TX SCH ×4 (00:33→19:17)
[2017-10-29] MEDS: DEXTROSE 10% 1,000 ML IV PRN ×2 (01:16→07:27)
[2017-10-29] MEDS: TRACE ELEMENTS (5) 1 ML, MULTIVITAMIN INJ 10 ML in AMINO ACIDS/DEXT/LYTE 4.25-15% 2,000 ML IV SCH (01:42)
[2017-10-29 03:39] LABS: Basophils # 0.1 10*3/uL (0.0-0.2); Basophils % 0.2 % (0.0-0.8); Eosinophils % 0.1 % (0.00-10.9); Hematocrit 34.4 VOL% (42.0-52.0); Hemoglobin 11.3 GM/DL (14.0-18.0); Immature Granulocytes % 1.7 %; Immature Granulocytes Absolute 0.42 #; Lymphocytes # 0.6 10*3/uL (1.4-4.0); Lymphocytes % 2.4 % (21.2-54.2); Mean Corpuscular HGB Conc 32.8 GM/DL (32-36); Mean Corpuscular Hemoglobin 29 PG (27-34); Mean Corpuscular Volume 87.5 FL (87-102); Monocytes # 0.7 10*3/uL (0.11-0.8); Neutrophils # 22.5 10*3/uL (1.4-7.4); Neutrophils % 92.6 % (38.7-73.9); Platelet Count 330 T/CUMM (130-400); Red Blood Count 3.93 MC/CUMM (3.8-5.5); Red Cell Distribution Width 13.1 % (9.3-17.3); White Blood Count 24.3 T/CUMM (4-12)
[2017-10-29 04:17] LABS: Band Neutrophils 5 % (0-10); Lymphocytes 1 % (20-55); Segmented Neutrophils 91 % (50-85); Total Cells Counted 100
[2017-10-29] MEDS: PIPERACILLIN/TAZOBACTAM 3,375 MG in SODIUM CHLORIDE 0.9% 100 ML IV SCH ×3 (05:32→22:44)
[2017-10-29] MEDS: metroNIDAZOLE INJ 500 MG in PREMIX 1 EACH IV SCH ×3 (05:32→17:53)
[2017-10-29] MEDS: INSULIN REGULAR 100 UNIT/ML SUBCUT SCH ×3 (05:33→18:18)
[2017-10-29] MEDS: HEPARIN/NACL 0.9% 2 UNITS/ML 500 ML IV SCH (09:44)
[2017-10-29] MEDS: cefTRIAXone 1,000 MG in SYRINGE 1 EACH IV SCH (09:47)
[2017-10-29] MEDS: methylPREDNISolone SOD SUC 40 MG/1 ML VIAL IV SCH ×2 (09:48→22:45)
[2017-10-29 11:31] LABS: Apearance,Urine CLEAR (Clear); Bilirubin,Urine Negative (Negative); Blood, Urine Moderate mg/dL (Negative); Glucose,Urine (UA) 50 mg/dL (Negative); Ketones,Urine Negative (Negative); Mucus,Urine Occasional /LPF (Occasional); Nitrite,Urine Negative (Negative); Protein,Urine Negative; RBC,Urine 12 /HPF (0-4); Urine Color Yellow (Yellow); Urine Specific Gravity 1.011 (1.001-1.035); Urine Urobilinogen < 2.0 EU/DL (0.2-1.0); WBC,Urine 2 /HPF (0-6)
[2017-10-29] MEDS: LEVOFLOXACIN INJ 250 MG in PREMIX 1 EACH IV SCH (12:29)
[2017-10-29] MEDS ORDERED: DEXTROSE 10% 500 ML IV PRN (12:30)
[2017-10-29] MEDS ORDERED: DEXTROSE 50% 25 GM/50 ML VIAL IV PRN (13:38)
[2017-10-29] MEDS ORDERED: GLUCAGON 1 MG VIAL IM PRN (13:38)
[2017-10-29] MEDS: FAT EMULSION 20% 250 ML IV SCH (14:54)
[2017-10-29] MEDS: TRACE ELEMENTS (5) 1 ML, MULTIVITAMIN INJ 10 ML in AMINO ACIDS/DEXT/LYTES 4.25-5% 2,000 ML IV SCH (17:13)
[2017-10-29] MEDS: MORPHINE 4 MG/1 ML VIAL IV PRN (18:17)
[2017-10-30] MEDS: INSULIN REGULAR 100 UNIT/ML SUBCUT SCH ×5 (00:33→23:59)
[2017-10-30] MEDS: metroNIDAZOLE INJ 500 MG in PREMIX 1 EACH IV SCH ×4 (00:34→18:25)
[2017-10-30] MEDS: ALBUTEROL/IPRATROPIUM 3 ML NEB RESP TX SCH ×4 (01:14→19:30)
[2017-10-30] MEDS: PIPERACILLIN/TAZOBACTAM 3,375 MG in SODIUM CHLORIDE 0.9% 100 ML IV SCH ×3 (05:47→21:52)
[2017-10-30 05:50] LABS: Prealbumin 25.1 MG/DL (20-40)
[2017-10-30] MEDS: methylPREDNISolone SOD SUC 40 MG/1 ML VIAL IV SCH ×2 (09:14→21:53)
[2017-10-30] MEDS: cefTRIAXone 1,000 MG in SYRINGE 1 EACH IV SCH (09:50)
[2017-10-30] MEDS: LEVOFLOXACIN INJ 250 MG in PREMIX 1 EACH IV SCH (12:45)
[2017-10-30] MEDS: TRACE ELEMENTS (5) 1 ML, MULTIVITAMIN INJ 10 ML in AMINO ACIDS/DEXT/LYTES 4.25-5% 2,000 ML IV SCH (12:45)
[2017-10-30 14:11] LABS: Calcium 8.2 MG/DL (8.5-10.1); Osmolality,Calculated 286.7 MOS/KG (273-304); Potassium 4.1 MMOL/L (3.5-5.1)
[2017-10-30] MEDS ORDERED: SUGAMMADEX 200 MG/2 ML VIAL IV ONE ×2 (15:20→15:24)
[2017-10-30] MEDS ORDERED: ROCURONIUM 100 MG/10 ML VIAL IV ONE (16:00)
[2017-10-30] MEDS ORDERED: fentaNYL 100 MCG/2 ML VIAL ONE (16:00)
[2017-10-30] MEDS ORDERED: PROPOFOL 200 MG/20 ML VIAL IV ONE (16:00)
[2017-10-30] MEDS ORDERED: ONDANSETRON 4 MG/2 ML VIAL ONE (16:00)
[2017-10-30] MEDS ORDERED: SODIUM CHLORIDE 0.9% 500 ML IV ONE (16:01)
[2017-10-30] MEDS: FAT EMULSION 20% 250 ML IV SCH (16:40)
[2017-10-31] MEDS: ALBUTEROL/IPRATROPIUM 3 ML NEB RESP TX SCH ×4 (01:04→19:56)
[2017-10-31 04:30] LABS: Basophils # 0.1 10*3/uL (0.0-0.2); Basophils % 0.2 % (0.0-0.8); Hematocrit 34.5 VOL% (42.0-52.0); Hemoglobin 11.6 GM/DL (14.0-18.0); Immature Granulocytes Absolute 0.68 #; Lymphocytes # 0.4 10*3/uL (1.4-4.0); Lymphocytes % 1.9 % (21.2-54.2); Mean Corpuscular HGB Conc 33.6 GM/DL (32-36); Mean Corpuscular Hemoglobin 29 PG (27-34); Mean Corpuscular Volume 85.8 FL (87-102); Mean Platelet Volume 10.3 FL (9.6-12.0); Monocytes % 4.5 % (1.7-12.7); Neutrophils # 20.3 10*3/uL (1.4-7.4); Neutrophils % 90.4 % (38.7-73.9); Platelet Count 301 T/CUMM (130-400); Red Blood Count 4.02 MC/CUMM (3.8-5.5); Red Cell Distribution Width 13.2 % (9.3-17.3); White Blood Count 22.5 T/CUMM (4-12)
[2017-10-31 04:52] LABS: Giant Platelets Few; Hypochromasia 1+; Lymphocytes 1 % (20-55); Ovalocytes Slight; Platelet Estimate Adequate; Segmented Neutrophils 92 % (50-85); Total Cells Counted 100
[2017-10-31 05:05] LABS: Calcium 7.8 MG/DL (8.5-10.1); Osmolality,Calculated 287.7 MOS/KG (273-304); Potassium 4.8 MMOL/L (3.5-5.1)
[2017-10-31] MEDS: INSULIN REGULAR 100 UNIT/ML SUBCUT SCH ×4 (06:10→23:13)
[2017-10-31] MEDS: TRACE ELEMENTS (5) 1 ML, MULTIVITAMIN INJ 10 ML in AMINO ACIDS/DEXT/LYTES 4.25-5% 2,000 ML IV SCH (09:39)
[2017-10-31] MEDS: methylPREDNISolone SOD SUC 40 MG/1 ML VIAL IV SCH ×2 (09:44→21:42)
[2017-10-31] MEDS: cefTAZidime 1,000 MG in SYRINGE 1 EACH IV SCH ×2 (09:44→19:21)
[2017-10-31] MEDS: LEVOFLOXACIN INJ 250 MG in PREMIX 1 EACH IV SCH (12:27)
[2017-10-31] MEDS: FAT EMULSION 20% 250 ML IV SCH (14:05)
[2017-10-31] MEDS: HEPARIN/NACL 0.9% 2 UNITS/ML 500 ML IV SCH (17:40)
[2017-11-01] MEDS: ALBUTEROL/IPRATROPIUM 3 ML NEB RESP TX SCH ×4 (01:05→19:07)
[2017-11-01] MEDS: cefTAZidime 1,000 MG in SYRINGE 1 EACH IV SCH ×3 (01:15→17:15)
[2017-11-01] MEDS: INSULIN REGULAR 100 UNIT/ML SUBCUT SCH ×3 (06:07→17:23)
[2017-11-01] MEDS: TRACE ELEMENTS (5) 1 ML, MULTIVITAMIN INJ 10 ML in AMINO ACIDS/DEXT/LYTES 4.25-5% 2,000 ML IV SCH (09:00)
[2017-11-01] MEDS: methylPREDNISolone SOD SUC 40 MG/1 ML VIAL IV SCH ×2 (10:36→22:36)
[2017-11-01] MEDS: LEVOFLOXACIN INJ 250 MG in PREMIX 1 EACH IV SCH (12:28)
[2017-11-01] MEDS: FAT EMULSION 20% 250 ML IV SCH (15:04)
[2017-11-02] MEDS: INSULIN REGULAR 100 UNIT/ML SUBCUT SCH ×4 (00:30→17:45)
[2017-11-02] MEDS: ALBUTEROL/IPRATROPIUM 3 ML NEB RESP TX SCH ×4 (01:04→20:11)
[2017-11-02] MEDS: cefTAZidime 1,000 MG in SYRINGE 1 EACH IV SCH ×3 (01:50→17:43)
[2017-11-02] MEDS: TRACE ELEMENTS (5) 1 ML, MULTIVITAMIN INJ 10 ML in AMINO ACIDS/DEXT/LYTES 4.25-5% 2,000 ML IV SCH (04:59)
[2017-11-02 06:37] LABS: Basophils # 0.1 10*3/uL (0.0-0.2); Basophils % 0.2 % (0.0-0.8); Hematocrit 34.8 VOL% (42.0-52.0); Hemoglobin 11.9 GM/DL (14.0-18.0); Immature Granulocytes % 2.1 %; Immature Granulocytes Absolute 0.43 #; Lymphocytes # 0.5 10*3/uL (1.4-4.0); Lymphocytes % 2.3 % (21.2-54.2); Mean Corpuscular HGB Conc 34.2 GM/DL (32-36); Mean Corpuscular Hemoglobin 29 PG (27-34); Mean Corpuscular Volume 85.1 FL (87-102); Mean Platelet Volume 10.6 FL (9.6-12.0); Monocytes # 0.8 10*3/uL (0.11-0.8); Monocytes % 3.9 % (1.7-12.7); Neutrophils # 18.5 10*3/uL (1.4-7.4); Neutrophils % 91.5 % (38.7-73.9); Platelet Count 272 T/CUMM (130-400); Red Blood Count 4.09 MC/CUMM (3.8-5.5); Red Cell Distribution Width 13.4 % (9.3-17.3); White Blood Count 20.2 T/CUMM (4-12)
[2017-11-02 06:57] LABS: Calcium 8.4 MG/DL (8.5-10.1); Osmolality,Calculated 282.8 MOS/KG (273-304); Potassium 4.7 MMOL/L (3.5-5.1)
[2017-11-02 07:05] LABS: Band Neutrophils 4 % (0-10); Hypochromasia 2+; Lymphocytes 3 % (20-55); Platelet Estimate Adequate; Segmented Neutrophils 91 % (50-85); Total Cells Counted 100
[2017-11-02 07:18] LABS: Prealbumin 27.2 MG/DL (20-40)
[2017-11-02] MEDS: methylPREDNISolone SOD SUC 40 MG/1 ML VIAL IV SCH ×2 (09:45→21:18)
[2017-11-02] MEDS ORDERED: SUGAMMADEX 200 MG/2 ML VIAL IV ONE (11:10)
[2017-11-02] MEDS ORDERED: fentaNYL 100 MCG/2 ML VIAL ONE (12:47)
[2017-11-02] MEDS ORDERED: ETOMIDATE 40 MG/20 ML VIAL IV ONE (12:47)
[2017-11-02] MEDS ORDERED: SEVOFLURANE 1 UNIT/15 MINUTE INH ONE (12:47)
[2017-11-02] MEDS ORDERED: ROCURONIUM 100 MG/10 ML VIAL IV ONE (12:48)
[2017-11-02] MEDS: LEVOFLOXACIN INJ 250 MG in PREMIX 1 EACH IV SCH (12:51)
[2017-11-02] MEDS ORDERED: HYDROmorphone 2 MG/1 ML VIAL ONE (13:09)
[2017-11-02] MEDS ORDERED: HYDROmorphone 2 MG/1 ML VIAL IV PRN (13:13)
[2017-11-02] MEDS ORDERED: ONDANSETRON 4 MG/2 ML VIAL IV PRN (13:13)
[2017-11-02] MEDS: FAT EMULSION 20% 250 ML IV SCH (16:23)
[2017-11-03] MEDS: ALBUTEROL/IPRATROPIUM 3 ML NEB RESP TX SCH ×4 (00:23→19:29)
[2017-11-03] MEDS: INSULIN REGULAR 100 UNIT/ML SUBCUT SCH ×4 (00:53→18:57)
[2017-11-03] MEDS: cefTAZidime 1,000 MG in SYRINGE 1 EACH IV SCH ×3 (00:53→17:28)
[2017-11-03] MEDS: TRACE ELEMENTS (5) 1 ML, MULTIVITAMIN INJ 10 ML in AMINO ACIDS/DEXT/LYTES 4.25-5% 2,000 ML IV SCH ×2 (05:16→18:51)
[2017-11-03] MEDS: methylPREDNISolone SOD SUC 40 MG/1 ML VIAL IV SCH ×2 (10:21→21:30)
[2017-11-03] MEDS: FAT EMULSION 20% 250 ML IV SCH (16:16)
[2017-11-03] MEDS: LEVOFLOXACIN INJ 250 MG in PREMIX 1 EACH IV SCH (17:28)
[2017-11-04] MEDS: ALBUTEROL/IPRATROPIUM 3 ML NEB RESP TX SCH ×4 (00:21→19:06)
[2017-11-04] MEDS: INSULIN REGULAR 100 UNIT/ML SUBCUT SCH ×4 (01:10→18:12)
[2017-11-04] MEDS: cefTAZidime 1,000 MG in SYRINGE 1 EACH IV SCH ×3 (01:10→18:43)
[2017-11-04 04:27] LABS: Basophils # 0.1 10*3/uL (0.0-0.2); Basophils % 0.3 % (0.0-0.8); Hematocrit 34.8 VOL% (42.0-52.0); Hemoglobin 11.3 GM/DL (14.0-18.0); Immature Granulocytes % 2.5 %; Immature Granulocytes Absolute 0.43 #; Lymphocytes # 0.3 10*3/uL (1.4-4.0); Mean Corpuscular HGB Conc 32.5 GM/DL (32-36); Mean Corpuscular Hemoglobin 29 PG (27-34); Mean Corpuscular Volume 87.9 FL (87-102); Mean Platelet Volume 10.7 FL (9.6-12.0); Monocytes # 0.6 10*3/uL (0.11-0.8); Monocytes % 3.2 % (1.7-12.7); Platelet Count 232 T/CUMM (130-400); Red Blood Count 3.96 MC/CUMM (3.8-5.5); Red Cell Distribution Width 13.3 % (9.3-17.3); White Blood Count 17.4 T/CUMM (4-12)
[2017-11-04 04:54] LABS: Calcium 8.3 MG/DL (8.5-10.1); Osmolality,Calculated 284.1 MOS/KG (273-304); Potassium 4.6 MMOL/L (3.5-5.1)
[2017-11-04 05:55] LABS: Band Neutrophils 3 % (0-10); Lymphocytes 6 % (20-55); Platelet Estimate Normal; Segmented Neutrophils 90 % (50-85); Total Cells Counted 100
[2017-11-04] MEDS: methylPREDNISolone SOD SUC 40 MG/1 ML VIAL IV SCH ×2 (11:29→20:59)
[2017-11-04] MEDS: TRACE ELEMENTS (5) 1 ML, MULTIVITAMIN INJ 10 ML in AMINO ACIDS/DEXT/LYTES 4.25-5% 2,000 ML IV SCH (15:49)
[2017-11-04] MEDS: LEVOFLOXACIN INJ 250 MG in PREMIX 1 EACH IV SCH (15:50)
[2017-11-04] MEDS: FAT EMULSION 20% 250 ML IV SCH (15:50)
[2017-11-05] MEDS: INSULIN REGULAR 100 UNIT/ML SUBCUT SCH ×5 (00:46→23:55)
[2017-11-05] MEDS: cefTAZidime 1,000 MG in SYRINGE 1 EACH IV SCH ×2 (00:46→10:10)
[2017-11-05] MEDS: ALBUTEROL/IPRATROPIUM 3 ML NEB RESP TX SCH ×4 (00:52→19:41)
[2017-11-05] MEDS: methylPREDNISolone SOD SUC 40 MG/1 ML VIAL IV SCH (10:15)
[2017-11-05] MEDS: TRACE ELEMENTS (5) 1 ML, MULTIVITAMIN INJ 10 ML in AMINO ACIDS/DEXT/LYTES 4.25-5% 2,000 ML IV SCH (10:35)
[2017-11-05] MEDS: FAT EMULSION 20% 250 ML IV SCH (15:54)
[2017-11-06] MEDS: ALBUTEROL/IPRATROPIUM 3 ML NEB RESP TX SCH ×2 (00:11→07:22)
[2017-11-06 05:25] LABS: Basophils # 0.1 10*3/uL (0.0-0.2); Basophils % 0.5 % (0.0-0.8); Eosinophils # 0.1 10*3/uL (0.0-0.87); Eosinophils % 0.7 % (0.00-10.9); Hematocrit 37.2 VOL% (42.0-52.0); Hemoglobin 12.1 GM/DL (14.0-18.0); Immature Granulocytes % 3.9 %; Immature Granulocytes Absolute 0.59 #; Lymphocytes # 1.5 10*3/uL (1.4-4.0); Lymphocytes % 9.7 % (21.2-54.2); Mean Corpuscular HGB Conc 32.5 GM/DL (32-36); Mean Corpuscular Hemoglobin 29 PG (27-34); Mean Corpuscular Volume 87.5 FL (87-102); Mean Platelet Volume 10.3 FL (9.6-12.0); Monocytes # 1.1 10*3/uL (0.11-0.8); Monocytes % 7.4 % (1.7-12.7); Neutrophils # 11.7 10*3/uL (1.4-7.4); Neutrophils % 77.8 % (38.7-73.9); Platelet Count 196 T/CUMM (130-400); Red Blood Count 4.25 MC/CUMM (3.8-5.5); Red Cell Distribution Width 13.6 % (9.3-17.3); White Blood Count 15.1 T/CUMM (4-12)
[2017-11-06 05:45] LABS: Band Neutrophils 3 % (0-10); Lymphocytes 14 % (20-55); Segmented Neutrophils 78 % (50-85); Total Cells Counted 100
[2017-11-06 05:46] LABS: Platelet Estimate Normal
[2017-11-06 05:57] LABS: Calcium 8.6 MG/DL (8.5-10.1); Osmolality,Calculated 280.8 MOS/KG (273-304); Potassium 4.3 MMOL/L (3.5-5.1)
[2017-11-06] MEDS: INSULIN REGULAR 100 UNIT/ML SUBCUT SCH ×2 (06:30→11:36)
[2017-11-06] MEDS ORDERED: predniSONE 10 MG TABLET PO SCH (09:00)
[2017-11-06] MEDS ORDERED: LEVOFLOXACIN 500 MG TABLET PO SCH (09:00)
[2017-11-06 11:30] VITALS: BP 121/76
== END 2017-11-06 15:45 | DRG 853 ==
LOC: EDUNIT# → N.ED 03:28 → SUATTDRO 05:59 → N.EDINP 05:59 → N.ICU 07:00 → N.3E 10-31 14:36
PROVIDERS: ADMIT Internal Medicine

== ENCOUNTER 2018-01-01 00:32 | Inpatient (IN) ==
[2018-01-01] MEDS ORDERED: SODIUM CHLORIDE 0.9% 1,000 ML IV STA ×2 (00:59→02:20)
[2018-01-01 02:13] LABS: Basophils # 0.1 10*3/uL (0.0-0.2); Basophils % 0.4 % (0.0-0.8); Eosinophils # 0.2 10*3/uL (0.0-0.87); Eosinophils % 1.4 % (0.00-10.9); Hemoglobin 12.9 GM/DL (14.0-18.0); Immature Granulocytes % 1.9 %; Immature Granulocytes Absolute 0.27 #; Lymphocytes # 2.7 10*3/uL (1.4-4.0); Lymphocytes % 18.9 % (21.2-54.2); Mean Corpuscular HGB Conc 32.3 GM/DL (32-36); Mean Corpuscular Hemoglobin 28 PG (27-34); Mean Corpuscular Volume 86.2 FL (87-102); Mean Platelet Volume 9.1 FL (9.6-12.0); Monocytes # 1.1 10*3/uL (0.11-0.8); Monocytes % 7.5 % (1.7-12.7); Neutrophils # 9.8 10*3/uL (1.4-7.4); Neutrophils % 69.9 % (38.7-73.9); Platelet Count 298 T/CUMM (130-400); Red Blood Count 4.64 MC/CUMM (3.8-5.5); Red Cell Distribution Width 13.9 % (9.3-17.3)
[2018-01-01] MEDS ORDERED: CEFEPIME 2,000 MG in SODIUM CHLORIDE 0.9% 100 ML IV STA (02:20)
[2018-01-01] MEDS ORDERED: VANCOMYCIN INJ 1,000 MG in SODIUM CHLORIDE 0.9% 250 ML IV STA (02:20)
[2018-01-01 02:41] LABS: Albumin 3.3 G/DL (3.4-5.0); Bilirubin,Total 0.5 MG/DL (0.2-1.0); Calcium 9.3 MG/DL (8.5-10.1); Osmolality,Calculated 272.8 MOS/KG (273-304); Potassium 4.1 MMOL/L (3.5-5.1); Total Protein 8.7 G/DL (6.4-8.3)
[2018-01-01 02:42] LABS: Lactic Acid 1.9 MMOL/L (0.4-2.0)
[2018-01-01] MEDS ORDERED: CEFEPIME 2,000 MG VIAL ONE (02:50)
[2018-01-01] MEDS ORDERED: ACETAMINOPHEN 325 MG TABLET PO PRN (06:06)
[2018-01-01] MEDS ORDERED: DEXTROSE 50% 25 GM/50 ML VIAL IV PRN (06:06)
[2018-01-01] MEDS ORDERED: ONDANSETRON 4 MG/2 ML VIAL IV PRN (06:06)
[2018-01-01] MEDS ORDERED: GLUCAGON 1 MG VIAL IM PRN (06:06)
[2018-01-01] MEDS ORDERED: PROMETHAZINE 25 MG/1 ML VIAL IM PRN (06:06)
[2018-01-01] MEDS ORDERED: ALBUTEROL/IPRATROPIUM 3 ML NEB RESP TX PRN (06:06)
[2018-01-01] MEDS: SODIUM CHLORIDE 0.9% 1,000 ML IV SCH ×2 (06:34→21:04)
[2018-01-01] MEDS ORDERED: ENOXAPARIN 40 MG/0.4 ML SYRINGE ONE (06:55)
[2018-01-01] MEDS: ENOXAPARIN 40 MG/0.4 ML SYRINGE SUBCUT SCH (06:59)
[2018-01-01] MEDS: ALBUTEROL/IPRATROPIUM 3 ML NEB RESP TX SCH ×3 (07:30→19:10)
[2018-01-01] MEDS: INSULIN REGULAR 100 UNIT/ML SUBCUT SCH ×3 (08:17→18:45)
[2018-01-01] MEDS: PIPERACILLIN/TAZOBACTAM 3,375 MG in SODIUM CHLORIDE 0.9% 100 ML IV SCH ×2 (10:12→17:13)
[2018-01-01] MEDS: PANTOPRAZOLE 40 MG TABLET PO SCH (10:21)
[2018-01-01] MEDS: CARVEDILOL 12.5 MG TABLET PO SCH ×2 (10:21→21:14)
[2018-01-01] MEDS: LORazepam 1 MG TABLET PO SCH ×3 (10:22→21:14)
[2018-01-01] MEDS: predniSONE 10 MG TABLET PO SCH (10:22)
[2018-01-01] MEDS: DOCUSATE SODIUM 100 MG CAPSULE PO SCH ×2 (10:22→21:14)
[2018-01-01] MEDS: ATORVASTATIN 40 MG TABLET PO SCH (21:14)
[2018-01-01 21:25] LABS: Apearance,Urine CLEAR (Clear); Bilirubin,Urine Negative (Negative); Blood, Urine Negative (Negative); Glucose,Urine (UA) Negative (Negative); Ketones,Urine Negative (Negative); Nitrite,Urine Negative (Negative); Protein,Urine Negative; RBC,Urine 1 /HPF (0-4); Urine Color Yellow (Yellow); Urine Specific Gravity 1.039 (1.001-1.035); Urine Urobilinogen < 2.0 EU/DL (0.2-1.0); WBC,Urine 6 /HPF (0-6)
[2018-01-02] MEDS: ALBUTEROL/IPRATROPIUM 3 ML NEB RESP TX SCH ×4 (00:32→19:42)
[2018-01-02] MEDS: INSULIN REGULAR 100 UNIT/ML SUBCUT SCH ×4 (01:17→18:05)
[2018-01-02] MEDS: PIPERACILLIN/TAZOBACTAM 3,375 MG in SODIUM CHLORIDE 0.9% 100 ML IV SCH ×3 (01:55→17:30)
[2018-01-02 09:12] LABS: Calcium 8.3 MG/DL (8.5-10.1); Osmolality,Calculated 285.8 MOS/KG (273-304); Potassium 3.6 MMOL/L (3.5-5.1); Prealbumin 15.4 MG/DL (20-40)
[2018-01-02] MEDS: PANTOPRAZOLE 40 MG TABLET PO SCH ×2 (09:50→10:40)
[2018-01-02] MEDS: CARVEDILOL 12.5 MG TABLET PO SCH ×2 (09:50→21:02)
[2018-01-02] MEDS: DOCUSATE SODIUM 100 MG CAPSULE PO SCH ×2 (09:50→21:02)
[2018-01-02] MEDS: ENOXAPARIN 40 MG/0.4 ML SYRINGE SUBCUT SCH (09:50)
[2018-01-02] MEDS: LORazepam 1 MG TABLET PO SCH ×3 (09:50→21:02)
[2018-01-02] MEDS: predniSONE 10 MG TABLET PO SCH (09:50)
[2018-01-02] MEDS: SODIUM CHLORIDE 0.9% 1,000 ML IV SCH (10:31)
[2018-01-02] MEDS: LANSOPRAZOLE ODT 30 MG TABLET PEG SCH (10:42)
[2018-01-02] MEDS: ATORVASTATIN 40 MG TABLET PO SCH (21:02)
[2018-01-03] MEDS: ALBUTEROL/IPRATROPIUM 3 ML NEB RESP TX SCH ×4 (00:43→19:12)
[2018-01-03] MEDS: INSULIN REGULAR 100 UNIT/ML SUBCUT SCH ×4 (01:26→19:17)
[2018-01-03] MEDS: PIPERACILLIN/TAZOBACTAM 3,375 MG in SODIUM CHLORIDE 0.9% 100 ML IV SCH ×3 (01:33→16:34)
[2018-01-03 05:16] LABS: Calcium 8.1 MG/DL (8.5-10.1); Osmolality,Calculated 281.1 MOS/KG (273-304); Potassium 3.7 MMOL/L (3.5-5.1)
[2018-01-03 05:17] LABS: Basophils % 0.3 % (0.0-0.8); Eosinophils # 0.3 10*3/uL (0.0-0.87); Eosinophils % 3.4 % (0.00-10.9); Hematocrit 27.3 VOL% (42.0-52.0); Immature Granulocytes % 0.9 %; Immature Granulocytes Absolute 0.07 #; Lymphocytes # 1.8 10*3/uL (1.4-4.0); Lymphocytes % 23.4 % (21.2-54.2); Mean Corpuscular HGB Conc 31.5 GM/DL (32-36); Mean Corpuscular Hemoglobin 28 PG (27-34); Mean Corpuscular Volume 87.5 FL (87-102); Mean Platelet Volume 10.3 FL (9.6-12.0); Monocytes # 0.8 10*3/uL (0.11-0.8); Monocytes % 10.2 % (1.7-12.7); Neutrophils # 4.8 10*3/uL (1.4-7.4); Neutrophils % 61.8 % (38.7-73.9); Red Cell Distribution Width 13.9 % (9.3-17.3)
[2018-01-03 07:24] LABS: Platelet Count 213 T/CUMM (130-400); Red Blood Count 3.12 MC/CUMM (3.8-5.5); White Blood Count 7.7 T/CUMM (4-12)
[2018-01-03 07:25] LABS: Hemoglobin 8.6 GM/DL (14.0-18.0)
[2018-01-03] MEDS: LORazepam 1 MG TABLET PO SCH ×3 (10:19→21:20)
[2018-01-03] MEDS: LANSOPRAZOLE ODT 30 MG TABLET PEG SCH (10:20)
[2018-01-03] MEDS: CARVEDILOL 12.5 MG TABLET PO SCH ×2 (10:20→21:24)
[2018-01-03] MEDS: DOCUSATE SODIUM 100 MG CAPSULE PO SCH ×2 (10:20→21:24)
[2018-01-03] MEDS: predniSONE 10 MG TABLET PO SCH (10:20)
[2018-01-03] MEDS: ENOXAPARIN 40 MG/0.4 ML SYRINGE SUBCUT SCH (10:25)
[2018-01-03] MEDS ORDERED: FUROSEMIDE 40 MG/4 ML VIAL IV ONE (11:00)
[2018-01-03] MEDS ORDERED: ZIPRASIDONE 20 MG/1 ML VIAL IM PRN (15:32)
[2018-01-03] MEDS: ATORVASTATIN 40 MG TABLET PO SCH (21:21)
[2018-01-04] MEDS: ALBUTEROL/IPRATROPIUM 3 ML NEB RESP TX SCH ×5 (00:32→23:55)
[2018-01-04] MEDS: INSULIN REGULAR 100 UNIT/ML SUBCUT SCH ×4 (01:02→18:07)
[2018-01-04] MEDS: PIPERACILLIN/TAZOBACTAM 3,375 MG in SODIUM CHLORIDE 0.9% 100 ML IV SCH ×3 (01:18→16:38)
[2018-01-04] MEDS: CARVEDILOL 12.5 MG TABLET PO SCH ×2 (08:53→21:26)
[2018-01-04] MEDS: LORazepam 1 MG TABLET PO SCH ×3 (08:53→21:26)
[2018-01-04] MEDS: predniSONE 10 MG TABLET PO SCH (08:53)
[2018-01-04] MEDS: DOCUSATE SODIUM 100 MG CAPSULE PO SCH ×2 (08:53→21:26)
[2018-01-04] MEDS: ENOXAPARIN 40 MG/0.4 ML SYRINGE SUBCUT SCH (08:53)
[2018-01-04] MEDS: LANSOPRAZOLE ODT 30 MG TABLET PEG SCH (08:53)
[2018-01-04] MEDS ORDERED: TUBERCULIN SKIN TEST 0.1 ML SYRINGE INTRADERM ONE (15:38)
[2018-01-04] MEDS: ATORVASTATIN 40 MG TABLET PO SCH (21:26)
[2018-01-05] MEDS: INSULIN REGULAR 100 UNIT/ML SUBCUT SCH ×2 (02:21→07:41)
[2018-01-05] MEDS: PIPERACILLIN/TAZOBACTAM 3,375 MG in SODIUM CHLORIDE 0.9% 100 ML IV SCH (02:22)
[2018-01-05 06:31] LABS: Calcium 8.4 MG/DL (8.5-10.1); Osmolality,Calculated 277.4 MOS/KG (273-304); Potassium 3.6 MMOL/L (3.5-5.1)
[2018-01-05] MEDS: ALBUTEROL/IPRATROPIUM 3 ML NEB RESP TX SCH (07:16)
[2018-01-05 07:26] VITALS: BP 111/64
[2018-01-05] MEDS: LORazepam 1 MG TABLET PO SCH (08:06)
[2018-01-05] MEDS: predniSONE 10 MG TABLET PO SCH (08:06)
[2018-01-05] MEDS: ENOXAPARIN 40 MG/0.4 ML SYRINGE SUBCUT SCH (08:06)
[2018-01-05] MEDS: DOCUSATE SODIUM 100 MG CAPSULE PO SCH (08:06)
[2018-01-05] MEDS: CARVEDILOL 12.5 MG TABLET PO SCH (08:06)
[2018-01-05] MEDS: LANSOPRAZOLE ODT 30 MG TABLET PEG SCH (08:06)
== END 2018-01-05 09:10 | DRG 178 ==
LOC: EDBD → EDUNIT# → N.ED 00:32 → N.EDINP 03:50 → N.2E 11:00
PROVIDERS: ADMIT Internal Medicine; ATTEND Internal Medicine

== ENCOUNTER 2018-02-08 15:20 | Inpatient (IN) ==
[2018-02-08] MEDS ORDERED: SODIUM CHLORIDE 0.9% 1,000 ML IV STA (16:06)
[2018-02-08 16:46] LABS: Basophils % 0.2 % (0.0-0.8); Hematocrit 50.6 VOL% (42.0-52.0); Immature Granulocytes % 0.7 %; Immature Granulocytes Absolute 0.13 #; Lymphocytes # 1.1 10*3/uL (1.4-4.0); Lymphocytes % 5.6 % (21.2-54.2); Mean Corpuscular HGB Conc 31.6 GM/DL (32-36); Mean Corpuscular Hemoglobin 28 PG (27-34); Mean Corpuscular Volume 87.7 FL (87-102); Mean Platelet Volume 9.7 FL (9.6-12.0); Monocytes # 1.1 10*3/uL (0.11-0.8); Monocytes % 5.5 % (1.7-12.7); Neutrophils # 16.8 10*3/uL (1.4-7.4); Platelet Count 274 T/CUMM (130-400); Red Blood Count 5.77 MC/CUMM (3.8-5.5); Red Cell Distribution Width 14.6 % (9.3-17.3)
[2018-02-08 17:04] LABS: Apearance,Urine CLEAR (Clear); Bacteria,Urine Occasional /HPF (Few); Bilirubin,Urine Negative (Negative); Blood, Urine Negative (Negative); Glucose,Urine (UA) Negative (Negative); Hyaline Casts,Urine 1 /LPF (0-3); Ketones,Urine Negative (Negative); Nitrite,Urine Negative (Negative); Protein,Urine Negative; RBC,Urine <1 /HPF (0-4); Urine Color Yellow (Yellow); Urine Specific Gravity 1.015 (1.001-1.035); Urine Urobilinogen < 2.0 EU/DL (0.2-1.0)
[2018-02-08 17:13] LABS: Lymphocytes 9 % (20-55); Segmented Neutrophils 86 % (50-85); Total Cells Counted 100
[2018-02-08 17:14] LABS: Platelet Estimate Adequate
[2018-02-08 17:23] LABS: Albumin 3.4 G/DL (3.4-5.0); Bilirubin,Total 0.6 MG/DL (0.2-1.0); Osmolality,Calculated 327.6 MOS/KG (273-304); Total Protein 10.7 G/DL (6.4-8.3)
[2018-02-08 17:26] LABS: Potassium 6.1 MMOL/L (3.5-5.1)
[2018-02-08] MEDS ORDERED: LEVOFLOXACIN INJ 500 MG in PREMIX 1 EACH IV STA (17:30)
[2018-02-08] MEDS ORDERED: SODIUM CHLORIDE 0.9% 1,650 ML IV ONE (17:52)
[2018-02-08] MEDS ORDERED: ACETAMINOPHEN 325 MG TABLET PEG PRN (17:59)
[2018-02-08] MEDS ORDERED: ALBUTEROL/IPRATROPIUM 3 ML NEB RESP TX PRN (17:59)
[2018-02-08] MEDS ORDERED: cefTRIAXone 1,000 MG VIAL ONE (18:42)
[2018-02-08] MEDS ORDERED: SODIUM POLYSTYRENE SULFATE 15 GM/60 ML BOTTLE PO STA (18:56)
[2018-02-08] MEDS: cefTRIAXone 1,000 MG in SYRINGE 1 EACH IV SCH (19:04)
[2018-02-08 19:27] LABS: Lactic Acid 2.7 MMOL/L (0.4-2.0)
[2018-02-08] MEDS: INSULIN REGULAR 100 UNIT/ML SUBCUT SCH (21:52)
[2018-02-08] MEDS: AZITHROMYCIN INJ 500 MG in SODIUM CHLORIDE 0.9% 250 ML IV SCH (22:13)
[2018-02-08] MEDS: CARVEDILOL 12.5 MG TABLET PEG SCH (22:14)
[2018-02-08] MEDS: FAMOTIDINE 20 MG TABLET PEG SCH (22:14)
[2018-02-08] MEDS: DOCUSATE SODIUM 100 MG/10 ML UDCUP PEG SCH (22:14)
[2018-02-08] MEDS: ATORVASTATIN 40 MG TABLET PEG SCH (22:14)
[2018-02-08] MEDS: SODIUM CHLORIDE 0.9% 1,000 ML IV SCH (22:15)
[2018-02-08] MEDS: guaiFENesin 200 MG/10 ML UDCUP PEG SCH (22:15)
[2018-02-09] MEDS: INSULIN REGULAR 100 UNIT/ML SUBCUT SCH ×4 (07:02→18:15)
[2018-02-09 07:55] LABS: Basophils % 0.2 % (0.0-0.8); Eosinophils % 0.1 % (0.00-10.9); Hematocrit 45.6 VOL% (42.0-52.0); Immature Granulocytes % 0.6 %; Immature Granulocytes Absolute 0.09 #; Lymphocytes # 1.2 10*3/uL (1.4-4.0); Lymphocytes % 8.4 % (21.2-54.2); Mean Corpuscular HGB Conc 30.7 GM/DL (32-36); Mean Corpuscular Hemoglobin 27 PG (27-34); Mean Corpuscular Volume 88.9 FL (87-102); Mean Platelet Volume 9.7 FL (9.6-12.0); Monocytes # 1.2 10*3/uL (0.11-0.8); Monocytes % 8.4 % (1.7-12.7); Neutrophils # 11.7 10*3/uL (1.4-7.4); Neutrophils % 82.3 % (38.7-73.9); Platelet Count 241 T/CUMM (130-400); Red Blood Count 5.13 MC/CUMM (3.8-5.5); Red Cell Distribution Width 14.7 % (9.3-17.3); White Blood Count 14.2 T/CUMM (4-12)
[2018-02-09 08:16] LABS: Band Neutrophils 3 % (0-10); Hypochromasia 1+; Lymphocytes 13 % (20-55); Microcytosis 1+; Myelocytes 1 %; Platelet Estimate Normal; Segmented Neutrophils 76 % (50-85); Total Cells Counted 100
[2018-02-09 08:47] LABS: Alanine Aminotransferase 30 U/L (16-61); Albumin 2.6 G/DL (3.4-5.0); Alkaline Phosphatase 86 U/L (45-117); Aspartate Amino Transferase 24 U/L (0-37); Bilirubin,Total < 0.39 MG/DL (0.2-1.0); Blood Urea Nitrogen 91 MG/DL (7-18); Calcium 9.9 MG/DL (8.5-10.1); Glucose 139 MG/DL (74-106); Osmolality,Calculated 334.4 MOS/KG (273-304); Potassium 5.5 MMOL/L (3.5-5.1); Sodium 154 MMOL/L (136-145); Total Protein 8.7 G/DL (6.4-8.3)
[2018-02-09] MEDS: DOCUSATE SODIUM 100 MG/10 ML UDCUP PEG SCH ×2 (09:00→20:10)
[2018-02-09] MEDS: predniSONE 10 MG TABLET PEG SCH (09:00)
[2018-02-09] MEDS: CARVEDILOL 12.5 MG TABLET PEG SCH ×2 (09:00→17:16)
[2018-02-09] MEDS: guaiFENesin 200 MG/10 ML UDCUP PEG SCH ×2 (09:00→20:10)
[2018-02-09] MEDS: POLYETHYLENE GLYCOL POWDER 17 GM PACK PEG SCH (09:00)
[2018-02-09] MEDS: SODIUM CHLORIDE 0.9% 1,000 ML IV SCH (10:03)
[2018-02-09] MEDS ORDERED: DEXTROSE 50% 25 GM/50 ML VIAL IV PRN (14:29)
[2018-02-09] MEDS ORDERED: GLUCAGON 1 MG VIAL IM PRN (14:29)
[2018-02-09] MEDS: SODIUM CHLORIDE 0.45% 1,000 ML IV SCH (16:04)
[2018-02-09] MEDS: cefTRIAXone 1,000 MG in SYRINGE 1 EACH IV SCH (17:53)
[2018-02-09] MEDS: FAMOTIDINE 20 MG TABLET PEG SCH (20:10)
[2018-02-09] MEDS: ATORVASTATIN 40 MG TABLET PEG SCH (20:10)
[2018-02-09] MEDS: AZITHROMYCIN INJ 500 MG in SODIUM CHLORIDE 0.9% 250 ML IV SCH (20:10)
[2018-02-10] MEDS: INSULIN REGULAR 100 UNIT/ML SUBCUT SCH ×4 (03:07→18:40)
[2018-02-10 07:28] LABS: Basophils % 0.2 % (0.0-0.8); Hematocrit 40.4 VOL% (42.0-52.0); Hemoglobin 12.2 GM/DL (14.0-18.0); Immature Granulocytes % 0.6 %; Lymphocytes # 1.2 10*3/uL (1.4-4.0); Lymphocytes % 7.4 % (21.2-54.2); Mean Corpuscular HGB Conc 30.2 GM/DL (32-36); Mean Corpuscular Hemoglobin 27 PG (27-34); Mean Corpuscular Volume 90.6 FL (87-102); Mean Platelet Volume 10.4 FL (9.6-12.0); Monocytes # 1.3 10*3/uL (0.11-0.8); Monocytes % 8.4 % (1.7-12.7); Neutrophils # 13.1 10*3/uL (1.4-7.4); Neutrophils % 83.4 % (38.7-73.9); Platelet Count 235 T/CUMM (130-400); Red Blood Count 4.46 MC/CUMM (3.8-5.5); Red Cell Distribution Width 15.1 % (9.3-17.3); White Blood Count 15.7 T/CUMM (4-12)
[2018-02-10 07:52] LABS: Alanine Aminotransferase 34 U/L (16-61); Albumin 2.3 G/DL (3.4-5.0); Alkaline Phosphatase 87 U/L (45-117); Aspartate Amino Transferase 27 U/L (0-37); Bilirubin,Total < 0.39 MG/DL (0.2-1.0); Blood Urea Nitrogen 80 MG/DL (7-18); Calcium 9.7 MG/DL (8.5-10.1); Glucose 147 MG/DL (74-106); Osmolality,Calculated 344.5 MOS/KG (273-304); Total Protein 8.1 G/DL (6.4-8.3)
[2018-02-10 07:59] LABS: Sodium 161 MMOL/L (136-145)
[2018-02-10 08:02] LABS: Band Neutrophils 26 % (0-10); Lymphocytes 11 % (20-55); Platelet Estimate Normal; Segmented Neutrophils 55 % (50-85); Total Cells Counted 100
[2018-02-10] MEDS: POLYETHYLENE GLYCOL POWDER 17 GM PACK PEG SCH (09:49)
[2018-02-10] MEDS: CARVEDILOL 12.5 MG TABLET PEG SCH ×2 (09:50→16:29)
[2018-02-10] MEDS: predniSONE 10 MG TABLET PEG SCH (09:50)
[2018-02-10] MEDS: DOCUSATE SODIUM 100 MG/10 ML UDCUP PEG SCH (09:50)
[2018-02-10] MEDS: guaiFENesin 200 MG/10 ML UDCUP PEG SCH ×2 (09:50→20:52)
[2018-02-10] MEDS: DEXTROSE 5% 1,000 ML IV SCH ×2 (09:53→20:54)
[2018-02-10] MEDS: SODIUM CHLORIDE 0.45% 1,000 ML IV SCH (14:15)
[2018-02-10 16:23] LABS: Calcium 9.2 MG/DL (8.5-10.1); Osmolality,Calculated 340.9 MOS/KG (273-304); Potassium 4.6 MMOL/L (3.5-5.1)
[2018-02-10] MEDS: cefTRIAXone 1,000 MG in SYRINGE 1 EACH IV SCH (18:40)
[2018-02-10] MEDS: ATORVASTATIN 40 MG TABLET PEG SCH (20:52)
[2018-02-10] MEDS: FAMOTIDINE 20 MG TABLET PEG SCH (20:52)
[2018-02-10] MEDS: AZITHROMYCIN INJ 500 MG in SODIUM CHLORIDE 0.9% 250 ML IV SCH (20:52)
[2018-02-11] MEDS: INSULIN REGULAR 100 UNIT/ML SUBCUT SCH ×4 (00:34→18:30)
[2018-02-11 07:20] LABS: Albumin 2.1 G/DL (3.4-5.0); Basophils % 0.2 % (0.0-0.8); Bilirubin,Total 0.4 MG/DL (0.2-1.0); Calcium 9.8 MG/DL (8.5-10.1); Eosinophils # 0.1 10*3/uL (0.0-0.87); Eosinophils % 0.4 % (0.00-10.9); Hematocrit 37.7 VOL% (42.0-52.0); Hemoglobin 11.4 GM/DL (14.0-18.0); Immature Granulocytes % 0.9 %; Immature Granulocytes Absolute 0.14 #; Lymphocytes # 1.9 10*3/uL (1.4-4.0); Lymphocytes % 11.9 % (21.2-54.2); Mean Corpuscular HGB Conc 30.2 GM/DL (32-36); Mean Corpuscular Hemoglobin 28 PG (27-34); Mean Corpuscular Volume 91.7 FL (87-102); Mean Platelet Volume 10.9 FL (9.6-12.0); Monocytes % 6.4 % (1.7-12.7); Neutrophils % 80.2 % (38.7-73.9); Platelet Count 200 T/CUMM (130-400); Red Blood Count 4.11 MC/CUMM (3.8-5.5); Red Cell Distribution Width 15.3 % (9.3-17.3); Total Protein 8.1 G/DL (6.4-8.3); White Blood Count 16.2 T/CUMM (4-12)
[2018-02-11 07:40] LABS: Anisocytosis 1+; Band Neutrophils 8 % (0-10); Eosinophils 1 % (0-10); Lymphocytes 17 % (20-55); Platelet Estimate Normal; Segmented Neutrophils 71 % (50-85); Total Cells Counted 100
[2018-02-11] MEDS: guaiFENesin 200 MG/10 ML UDCUP PEG SCH ×2 (09:24→22:25)
[2018-02-11] MEDS: predniSONE 10 MG TABLET PEG SCH (09:24)
[2018-02-11] MEDS: CARVEDILOL 12.5 MG TABLET PEG SCH ×2 (09:24→18:23)
[2018-02-11] MEDS: DEXTROSE 5% 1,000 ML IV SCH (12:57)
[2018-02-11] MEDS: cefTRIAXone 1,000 MG in SYRINGE 1 EACH IV SCH (18:30)
[2018-02-11] MEDS: AZITHROMYCIN INJ 500 MG in SODIUM CHLORIDE 0.9% 250 ML IV SCH (22:11)
[2018-02-11] MEDS: ATORVASTATIN 40 MG TABLET PEG SCH (22:25)
[2018-02-11] MEDS: FAMOTIDINE 20 MG TABLET PEG SCH (22:25)
[2018-02-12] MEDS: INSULIN REGULAR 100 UNIT/ML SUBCUT SCH ×4 (02:10→18:27)
[2018-02-12 06:49] LABS: Basophils % 0.2 % (0.0-0.8); Eosinophils # 0.2 10*3/uL (0.0-0.87); Eosinophils % 1.8 % (0.00-10.9); Hematocrit 34.1 VOL% (42.0-52.0); Hemoglobin 10.3 GM/DL (14.0-18.0); Immature Granulocytes % 1.3 %; Immature Granulocytes Absolute 0.17 #; Lymphocytes # 1.7 10*3/uL (1.4-4.0); Lymphocytes % 13.1 % (21.2-54.2); Mean Corpuscular HGB Conc 30.2 GM/DL (32-36); Mean Corpuscular Hemoglobin 28 PG (27-34); Mean Corpuscular Volume 91.2 FL (87-102); Mean Platelet Volume 10.6 FL (9.6-12.0); Monocytes # 0.7 10*3/uL (0.11-0.8); Monocytes % 5.3 % (1.7-12.7); Neutrophils # 10.1 10*3/uL (1.4-7.4); Neutrophils % 78.3 % (38.7-73.9); Platelet Count 171 T/CUMM (130-400); Red Blood Count 3.74 MC/CUMM (3.8-5.5); Red Cell Distribution Width 15.2 % (9.3-17.3)
[2018-02-12 07:16] LABS: Alanine Aminotransferase 41 U/L (16-61); Albumin 1.9 G/DL (3.4-5.0); Alkaline Phosphatase 80 U/L (45-117); Aspartate Amino Transferase 31 U/L (0-37); Bilirubin,Total < 0.39 MG/DL (0.2-1.0); Blood Urea Nitrogen 47 MG/DL (7-18); Glucose 160 MG/DL (74-106); Osmolality,Calculated 317.6 MOS/KG (273-304); Sodium 153 MMOL/L (136-145); Total Protein 7.2 G/DL (6.4-8.3)
[2018-02-12 07:17] LABS: Calcium 9.1 MG/DL (8.5-10.1); Lymphocytes 20 % (20-55); Osmolality,Calculated 319.6 MOS/KG (273-304); Platelet Estimate Normal; Potassium 4.1 MMOL/L (3.5-5.1); Prealbumin 9.7 MG/DL (20-40); Segmented Neutrophils 79 % (50-85); Total Cells Counted 100
[2018-02-12] MEDS: DEXTROSE 5% 1,000 ML IV SCH ×3 (08:21→14:51)
[2018-02-12] MEDS: CARVEDILOL 12.5 MG TABLET PEG SCH ×2 (09:18→18:51)
[2018-02-12] MEDS: predniSONE 10 MG TABLET PEG SCH (09:59)
[2018-02-12] MEDS: guaiFENesin 200 MG/10 ML UDCUP PEG SCH ×2 (09:59→20:57)
[2018-02-12] MEDS ORDERED: FUROSEMIDE 40 MG/4 ML VIAL IV ONE (18:47)
[2018-02-12] MEDS ORDERED: FUROSEMIDE 40 MG/4 ML VIAL ONE (18:50)
[2018-02-12] MEDS: cefTRIAXone 1,000 MG in SYRINGE 1 EACH IV SCH (19:03)
[2018-02-12] MEDS ORDERED: cefTRIAXone 1,000 MG in SODIUM CHLORIDE 0.9% 100 ML IV SCH (19:30)
[2018-02-12] MEDS: DORNASE ALFA 2.5 MG/2.5 ML VIAL RESP TX SCH (20:17)
[2018-02-12] MEDS: methylPREDNISolone SOD SUC 125 MG/2 ML VIAL IV SCH (20:42)
[2018-02-12] MEDS: MEROPENEM 1,000 MG in SYRINGE 1 EACH IV SCH (20:45)
[2018-02-12] MEDS: PIPERACILLIN/TAZOBACTAM 3,375 MG in SODIUM CHLORIDE 0.9% 100 ML IV SCH (20:54)
[2018-02-12] MEDS: FAMOTIDINE 20 MG TABLET PEG SCH (20:57)
[2018-02-12] MEDS: ATORVASTATIN 40 MG TABLET PEG SCH (20:57)
[2018-02-13] MEDS: ALBUTEROL/IPRATROPIUM 3 ML NEB RESP TX SCH ×4 (00:31→19:18)
[2018-02-13] MEDS: INSULIN REGULAR 100 UNIT/ML SUBCUT SCH ×4 (00:58→18:00)
[2018-02-13] MEDS: DEXTROSE 5% 1,000 ML IV SCH ×2 (02:43→17:25)
[2018-02-13] MEDS: methylPREDNISolone SOD SUC 125 MG/2 ML VIAL IV SCH ×4 (02:44→20:21)
[2018-02-13] MEDS: PIPERACILLIN/TAZOBACTAM 3,375 MG in SODIUM CHLORIDE 0.9% 100 ML IV SCH (04:32)
[2018-02-13 06:33] LABS: Calcium 8.7 MG/DL (8.5-10.1); Osmolality,Calculated 303.7 MOS/KG (273-304); Potassium 5.1 MMOL/L (3.5-5.1)
[2018-02-13] MEDS: DORNASE ALFA 2.5 MG/2.5 ML VIAL RESP TX SCH ×2 (07:22→19:18)
[2018-02-13 09:10] LABS: Basophils % 0.1 % (0.0-0.8); Eosinophils % 0.1 % (0.00-10.9); Hematocrit 26.8 VOL% (42.0-52.0); Immature Granulocytes % 1.5 %; Immature Granulocytes Absolute 0.26 #; Lymphocytes # 1.1 10*3/uL (1.4-4.0); Lymphocytes % 6.1 % (21.2-54.2); Mean Corpuscular Hemoglobin 28 PG (27-34); Mean Corpuscular Volume 91.2 FL (87-102); Mean Platelet Volume 11.3 FL (9.6-12.0); Monocytes # 0.1 10*3/uL (0.11-0.8); Monocytes % 0.6 % (1.7-12.7); Neutrophils # 15.8 10*3/uL (1.4-7.4); Neutrophils % 91.6 % (38.7-73.9); Platelet Count 211 T/CUMM (130-400); Red Blood Count 2.94 MC/CUMM (3.8-5.5); Red Cell Distribution Width 14.6 % (9.3-17.3); White Blood Count 17.2 T/CUMM (4-12)
[2018-02-13 09:15] LABS: Hemoglobin 8.3 GM/DL (14.0-18.0)
[2018-02-13] MEDS ORDERED: SODIUM CHLORIDE 0.9% 1,000 ML IV PRN (09:19)
[2018-02-13 09:41] LABS: Hypochromasia 1+; Lymphocytes 4 % (20-55); Platelet Estimate Adequate; Segmented Neutrophils 93 % (50-85); Total Cells Counted 100
[2018-02-13] MEDS: guaiFENesin 200 MG/10 ML UDCUP PEG SCH ×2 (09:42→20:22)
[2018-02-13] MEDS: CARVEDILOL 12.5 MG TABLET PEG SCH ×2 (09:42→18:00)
[2018-02-13] MEDS: MEROPENEM 1,000 MG in SYRINGE 1 EACH IV SCH ×2 (09:43→20:16)
[2018-02-13] MEDS: predniSONE 10 MG TABLET PEG SCH (12:46)
[2018-02-13] MEDS: FAMOTIDINE 20 MG TABLET PEG SCH (20:22)
[2018-02-13] MEDS: ATORVASTATIN 40 MG TABLET PEG SCH (20:22)
[2018-02-14] MEDS: ALBUTEROL/IPRATROPIUM 3 ML NEB RESP TX SCH ×3 (00:15→13:22)
[2018-02-14] MEDS: INSULIN REGULAR 100 UNIT/ML SUBCUT SCH ×3 (00:34→12:26)
[2018-02-14 01:14] LABS: Hematocrit 40.2 VOL% (42.0-52.0); Hemoglobin 13.1 GM/DL (14.0-18.0)
[2018-02-14 01:15] LABS: Basophils % 0.2 % (0.0-0.8); Hematocrit 40.7 VOL% (42.0-52.0); Immature Granulocytes % 1.4 %; Immature Granulocytes Absolute 0.26 #; Lymphocytes # 1.2 10*3/uL (1.4-4.0); Lymphocytes % 6.3 % (21.2-54.2); Mean Corpuscular HGB Conc 31.9 GM/DL (32-36); Mean Corpuscular Hemoglobin 28 PG (27-34); Mean Corpuscular Volume 88.5 FL (87-102); Mean Platelet Volume 10.5 FL (9.6-12.0); Monocytes # 0.4 10*3/uL (0.11-0.8); Monocytes % 1.9 % (1.7-12.7); Neutrophils # 17.3 10*3/uL (1.4-7.4); Neutrophils % 90.2 % (38.7-73.9); Platelet Count 174 T/CUMM (130-400); Red Cell Distribution Width 14.3 % (9.3-17.3); White Blood Count 19.1 T/CUMM (4-12)
[2018-02-14 01:55] LABS: Calcium 9.1 MG/DL (8.5-10.1); Osmolality,Calculated 305.8 MOS/KG (273-304); Potassium 4.6 MMOL/L (3.5-5.1)
[2018-02-14] MEDS: methylPREDNISolone SOD SUC 125 MG/2 ML VIAL IV SCH ×2 (02:18→10:50)
[2018-02-14] MEDS: DEXTROSE 5% 1,000 ML IV SCH (06:03)
[2018-02-14] MEDS: DORNASE ALFA 2.5 MG/2.5 ML VIAL RESP TX SCH (07:34)
[2018-02-14] MEDS: CARVEDILOL 12.5 MG TABLET PEG SCH (10:50)
[2018-02-14] MEDS: MEROPENEM 1,000 MG in SYRINGE 1 EACH IV SCH (10:50)
[2018-02-14] MEDS: guaiFENesin 200 MG/10 ML UDCUP PEG SCH (10:50)
[2018-02-14] MEDS: predniSONE 10 MG TABLET PEG SCH ×2 (10:52→10:53)
[2018-02-14 16:21] VITALS: BP 112/69
== END 2018-02-14 15:15 | DRG 871 ==
LOC: EDUNIT# → N.ED 15:20 → SUATTDRO 20:08 → N.EDINP 20:08 → N.5E 20:27
PROVIDERS: ADMIT Internal Medicine; ATTEND Hospitalist